=== PATIENT | male | born 1965 | race Caucasian/White ===

== ENCOUNTER 2017-10-31 10:50 | Inpatient (IN) | payer OTHER, MEDICARE ==
[2017-10-31] VITALS (9 sets, daily range): BP systolic 105–159; BP diastolic 61–89; PULSE 75–100; RESP 16–20; TEMP 96.4–98; O2SAT 93–100
[~2017-10-31] VITALS: Ht 177.8 cm; Wt 105.0 kg
[~2017-10-31 10:50] MED LIST: ALBU6.7H INH; AMIT10TA13 PO; ATOR80TA PO; DILT180C56 PO; FISH100020 PO; FLUO60TA PO; GABA800T PO; HYDR12.56 PO; OMEP20TA PO; OXYC15TA PO; OXYC40TA20 PO; TYLE500T PO
[2017-10-31] MEDS ORDERED: DILT120C50 PO (11:25)
[2017-10-31] MEDS ORDERED: ALBU6.7H INH (11:25)
[2017-10-31] MEDS ORDERED: ROXI30TA14 PO (11:25)
[2017-10-31] MEDS ORDERED: ONDANSETRON HCL 4 MG/2 ML VIAL IVP ONE (11:30)
[2017-10-31] MEDS ORDERED: SODIUM CHLOR 0.9% 1000 ML INJ 1,000 ML IV SCH (11:30)
[2017-10-31] MEDS ORDERED: SODIUM CHLORIDE 0.9% FLUSH 10 ML FLUSH IV FLUSH PRN ×2 (11:30→14:15)
[2017-10-31] MEDS ORDERED: MORPHINE SULFATE 4 MG/ML INJ IV PUSH ONE (11:30)
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
[2017-10-31 12:23] LABS: AUTOMATED NEUTROPHIL # 5.6 TH/MM3 (1.8-7.7); BASOPHIL # 0.1 TH/MM3 (0-0.2); BASOPHIL % 0.6 % (0.0-2.0); EOSINOPHIL # 0.2 TH/MM3 (0-0.4); EOSINOPHIL % 1.7 % (0.0-4.0); HEMATOCRIT 43.3 % (39.0-51.0); HEMOGLOBIN 15.2 GM/DL (13.0-17.0); LYMPH % 41.3 % (9.0-44.0); LYMPHOCYTE # 4.6 TH/MM3 (1.0-4.8); MEAN CELL VOLUME 95.9 FL (80.0-100.0); MEAN CORPUSCULAR HEMOGLOBIN 33.7 PG (27.0-34.0); MEAN CORPUSCULAR HGB CONC 35.1 % (32.0-36.0); MEAN PLATELET VOLUME 8.2 FL (7.0-11.0); MONO % 6.2 % (0.0-8.0); MONOCYTE # 0.7 TH/MM3 (0-0.9); NEUT % 50.2 % (16.0-70.0); PLATELET COUNT 288 TH/MM3 (150-450); RED BLOOD COUNT 4.51 MIL/MM3 (4.50-5.90); RED CELL DISTRIBUTION WIDTH 14.1 % (11.6-17.2); WHITE BLOOD COUNT 11.2 TH/MM3 (4.0-11.0)
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
[2017-10-31 12:42] LABS: ALKALINE PHOSPHATASE 82 U/L (45-117); TOTAL BILIRUBIN ADULT 0.3 MG/DL (0.2-1.0); TOTAL PROTEIN 7.9 GM/DL (6.4-8.2)
[2017-10-31 12:44] LABS: ALBUMIN 3.9 GM/DL (3.4-5.0); ALT (GPT) 24 U/L (12-78); AST (GOT) 26 U/L (15-37); BICARBONATE 24.5 MEQ/L (21.0-32.0); BLOOD UREA NITROGEN 10 MG/DL (7-18); CALCIUM 9.4 MG/DL (8.5-10.1); CHLORIDE 105 MEQ/L (98-107); CREATININE 0.88 MG/DL (0.60-1.30); GLOMERULAR FILTRATION RATE 91 ML/MIN (>89); GLUCOSE,RANDOM 114 MG/DL (74-106); SODIUM (NA) 138 MEQ/L (136-145)
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
[2017-10-31] MEDS ORDERED: HYDROmorphone HCL PF 2 MG/ML VIAL IVS ONE (13:15)
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
[2017-10-31] MEDS: SODIUM CHLOR 0.9% 1000 ML INJ 1,000 ML IV SCH ×2 (13:43→21:11)
[2017-10-31] MEDS ORDERED: HYDROmorphone HCL PF 1 MG/ML VIAL IV PUSH ONE (14:00)
[2017-10-31] MEDS ORDERED: ACETAMINOPHEN 325 MG TAB PO PRN (14:15)
[2017-10-31] MEDS ORDERED: ALBUTEROL SULFATE 90 MCG/ACT HFA 8 GM INHALER INH PRN (14:15)
[2017-10-31] MEDS ORDERED: SENNOSIDES 8.6 MG TAB PO PRN (14:15)
[2017-10-31] MEDS ORDERED: NALOXONE HCL 0.4 MG/ML AMP IV PUSH PRN (14:15)
[2017-10-31] MEDS ORDERED: ONDANSETRON HCL 4 MG/2 ML VIAL IVP PRN (14:15)
[2017-10-31] MEDS ORDERED: MAGNESIUM HYDROXIDE SUSP 30 ML CUP PO PRN (14:15)
[2017-10-31] MEDS ORDERED: RESP: ALBUTEROL 2.5 MG/3 ML NEB (PRN) NEB (14:15)
[2017-10-31] MEDS ORDERED: LACTULOSE SYRUP 20 GM/30 ML CUP PO PRN (14:15)
[2017-10-31] MEDS ORDERED: BISACODYL 10 MG SUPP RECTAL PRN (14:15)
[2017-10-31] MEDS ORDERED: HYDROmorphone HCL PF 2 MG/ML VIAL IV PUSH ONE (14:30)
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
[2017-10-31] MEDS ORDERED: OXYC30TA62 PO (16:25)
[2017-10-31] MEDS ORDERED: GABA800T PO (17:41)
[2017-10-31] MEDS ORDERED: FISHCAP4 PO (17:41)
[2017-10-31] MEDS ORDERED: FLUO60TA PO (17:41)
[2017-10-31] MEDS: HYDROmorphone HCL PF 2 MG/ML VIAL IV PUSH PRN ×2 (17:46→21:04)
[2017-10-31] MEDS ORDERED: OXYCODONE 15 MG PO PRN (18:00)
[2017-10-31] MEDS ORDERED: OXYCODONE 40 MG PO PRN (18:00)
[2017-10-31] MEDS: FLUoxetine HCL 20 MG CAP PO SCH (18:00)
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
[2017-10-31] MEDS: SODIUM CHLORIDE 0.9% FLUSH 10 ML FLUSH IV FLUSH SCH (21:00)
[2017-10-31] MEDS: DOCUSATE SODIUM 50 MG/SENNA 8.6 MG TAB PO SCH (21:01)
[2017-10-31] MEDS: GABAPENTIN 400 MG CAP PO SCH (21:01)
[2017-10-31] MEDS ORDERED: OXYCODONE 40 MG PO SCH ×2 (22:00)
[2017-10-31] MEDS ORDERED: oxyCODONE HCL 40 MG CONTROLLED RELEASE TAB PO SCH (22:00)
[2017-10-31] MEDS: ZOLPIDEM TARTRATE 5 MG TAB PO PRN (23:22)
[2017-10-31] MEDS: oxyCODONE HCL 40 MG CONTROLLED RELEASE TAB PO SCH (23:23)
[2017-11-01] MEDS ORDERED: SODIUM CHLORID 0.9% 500 ML IV PRN (00:45)
[2017-11-01] MEDS ORDERED: POVIDONE IODINE 5% (ANTISEPSIS KIT) 4 APPLICATIONS EACH NARE PRN (00:45)
[2017-11-01] MEDS ORDERED: CHLORHEXIDINE GLUCONATE 2 % 1 PACK (2 CLOTHS) TOPICAL PRN (00:45)
[2017-11-01] MEDS ORDERED: LACTATED RINGER'S 1000 ML IV PRN (00:45)
[2017-11-01] MEDS ORDERED: METOPROLOL TARTRATE 25 MG TAB PO PRN (00:45)
[2017-11-01] MEDS: HYDROmorphone HCL PF 2 MG/ML VIAL IV PUSH PRN ×2 (00:51→05:25)
[2017-11-01 03:49] VITALS: BP 116/61; PULSE 80; RESP 18; TEMP 96.6; O2SAT 97
[2017-11-01 04:12] LABS: AUTOMATED NEUTROPHIL # 4.2 TH/MM3 (1.8-7.7); BASOPHIL % 0.4 % (0.0-2.0); EOSINOPHIL # 0.2 TH/MM3 (0-0.4); EOSINOPHIL % 2.3 % (0.0-4.0); HEMATOCRIT 38.1 % (39.0-51.0); HEMOGLOBIN 13.2 GM/DL (13.0-17.0); LYMPH % 38.2 % (9.0-44.0); LYMPHOCYTE # 3.1 TH/MM3 (1.0-4.8); MEAN CELL VOLUME 97.2 FL (80.0-100.0); MEAN CORPUSCULAR HEMOGLOBIN 33.8 PG (27.0-34.0); MEAN CORPUSCULAR HGB CONC 34.7 % (32.0-36.0); MEAN PLATELET VOLUME 7.6 FL (7.0-11.0); MONO % 8.2 % (0.0-8.0); MONOCYTE # 0.7 TH/MM3 (0-0.9); NEUT % 50.9 % (16.0-70.0); PLATELET COUNT 232 TH/MM3 (150-450); RED BLOOD COUNT 3.92 MIL/MM3 (4.50-5.90); WHITE BLOOD COUNT 8.2 TH/MM3 (4.0-11.0)
[2017-11-01 04:48] LABS: BICARBONATE 30.7 MEQ/L (21.0-32.0); CALCIUM 8.1 MG/DL (8.5-10.1); CREATININE 0.71 MG/DL (0.60-1.30)
[2017-11-01 05:35] LABS: BILIRUBIN, URINE NEG (NEG); BLOOD, URINE NEG (NEG); GLUCOSE,URINE NEG (NEG); KETONE, URINE NEG (NEG); MUCUS URINE FEW /lpf (OCC); NITRITE,URINE NEG (NEG); SQUAMOUS EPITHELIAL CELL URINE <1 /hpf (0-5); URINE COLOR YELLOW (YELLW/STRAW); URINE LEUKOCYTE ESTERASE NEG (NEG)
[2017-11-01] MEDS: oxyCODONE HCL 40 MG CONTROLLED RELEASE TAB PO SCH ×3 (06:00→20:42)
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
[2017-11-01] MEDS ORDERED: WHEEMIS3 (06:37)
[2017-11-01] MEDS ORDERED: XARE10TA PO (06:37)
[2017-11-01] MEDS ORDERED: WALKER/ADULT/FO1 MIS (06:37)
[2017-11-01] MEDS ORDERED: ENDO10TA8 PO (06:37)
[2017-11-01 08:00] VITALS: BP 121/76; PULSE 77; RESP 18; TEMP 96.5; O2SAT 93
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
[2017-11-01] MEDS ORDERED: GENTAMICIN SULFATE 80 MG/2 ML VIAL ONE (08:50)
[2017-11-01] MEDS ORDERED: BUPIVACAINE/EPINEPHRINE 0.25% 50 ML VIAL ONE (08:50)
[2017-11-01] MEDS: DOCUSATE SODIUM 50 MG/SENNA 8.6 MG TAB PO SCH ×2 (09:00→20:44)
[2017-11-01] MEDS ORDERED: CHOLECALCIFEROL PO SCH (09:00)
[2017-11-01] MEDS ORDERED: NICOTINE 21 MG/24 HR PATCH T-DERMAL SCH (09:00)
[2017-11-01] MEDS: DILTIAZEM-CD 180 MG CAP ER PO SCH (09:00)
[2017-11-01] MEDS ORDERED: REMOVE OLD PATCH T-DERMAL SCH (09:00)
[2017-11-01] MEDS ORDERED: NON-FORMULARY DRUG (Fish Oil-Cholecalciferol (Fish Oil + D3) 1 CAP) PO SCH (09:00)
[2017-11-01] MEDS: GABAPENTIN 400 MG CAP PO SCH ×2 (09:00→20:41)
[2017-11-01] MEDS ORDERED: FISH OIL PO SCH (09:00)
[2017-11-01] MEDS: FLUoxetine HCL 20 MG CAP PO SCH ×2 (09:00→15:56)
[2017-11-01] MEDS: SODIUM CHLORIDE 0.9% FLUSH 10 ML FLUSH IV FLUSH SCH ×2 (09:00→20:43)
[2017-11-01] MEDS ORDERED: HYDROmorphone HCL PF 2 MG/ML VIAL ONE (09:15)
[2017-11-01] MEDS ORDERED: VANCOMYCIN HCL 1000 MG VIAL ONE (10:28)
[2017-11-01] MEDS ORDERED: ceFAZolin INJ 1,000 MG VIAL IV ONE ×2 (10:43→12:00)
[2017-11-01] MEDS ORDERED: ceFAZolin 2 GM PREMIX 50 ML IV ONE (11:00)
[2017-11-01] MEDS: LACTATED RINGER'S 1000 ML INJ 1,000 ML IV SCH (11:25)
[2017-11-01] MEDS ORDERED: ACETAMINOPHEN/HYDROcodone 325 MG/7.5 MG TAB PO PRN (11:30)
[2017-11-01] MEDS ORDERED: MORPHINE SULFATE 2 MG/ML INJ IV PUSH PRN (11:30)
[2017-11-01] MEDS ORDERED: diphenhydrAMINE HCL 25 MG CAP PO PRN (11:30)
--- NOTE | 2017-11-01 11:35 | PD.OP ---
cc: Edwin Dias MD Operative Report Date of Surgery: Nov 01, 2017 Preoperative Diagnosis: displaced right distal tibia shaft fracture Postoperative Diagnosis: Procedure: Open reduction internal fixation right distal tibia Anesthesia: Gen. Surgeon: Edwin Dias Fish Roe Technician(s): LALITA Woo PA-C The surgical procedure was assisted by my physician administrative assistant data entry. My P.A. presence was necessary throughout this case for the manipulation and positioning of the surgical extremity. My P.A. was assisting me throughout the duration of this procedure. The skill set of a physician administrative assistant data entry was medically necessary to complete this procedure. During the surgical case the surgical scrub tech was working at the back table and the physician administrative assistant data entry was directly assisting me. Operation and Findings: Plan of activity: Nonweightbearing Implants used: ITS Informed consent was obtained for open reduction and internal fixation of distal tibia fracture. Soft tissue was evaluated preoperatively and found to be suitable for surgery. Patient was brought to the operating placed on operating room table. Patient was given IV sedation and general anesthesia. Timeout procedure was performed, and IV antibiotics were given prior to procedure. The operative leg was now prepped with alcohol followed by Hibiclens and draped usual sterile fashion. A 3 inch incision was now made over the medial aspect of the ankle. Saphenous vein was protected. A full thickness flap was now elevated. The distal medial tibia was now exposed. Attention was now turned towards reduction. The metaphyseal fragments were reduced first. Traction was applied and fracture fragments were manipulated. Fracture was manipulated manipulated until excellent reduction was achieved. Fracture tenaculums were used to reduce fractures. Multiple K wires were used to hold provisional fixation. 3.5 cortical lag screws were used to compress fracture. Fluoroscopy confirmed excellent alignment of fractures. A ITS plate was selected and contoured to fit the distal tibia. Plate was placed percutaneously along the medial aspect of the distal tibia. Plate was provisionally held to bone with K wires. 4.5 cortical screws were used to compress plate to bone. Multiple screws were placed into the shaft. Additional screws were placed into the distal segment. All screws were predrilled and premeasured for appropriate lengths. Final fluoroscopy revealed well aligned fracture with well-placed hardware. The wound was now thoroughly irrigated. Subcutaneous tissues closed with 3-0 Vicryl and skin was closed with 3-0 nylon. Sterile dressings were applied with Xeroform 4 x 4's soft roll and a well-padded splint.. Needle and sponge counts were correct. Patient was transferred to recovery room in stable condition. Edwin Dias MD Nov 01, 2017 11:35
[2017-11-01] MEDS ORDERED: DO NOT ADM ANY ANTICOAGULANT DRUGS PRN (11:49)
[2017-11-01] MEDS ORDERED: *MEPERIDINE 25 MG INJ VIAL PERIprocedural Use ONLY ONE (11:59)
[2017-11-01] MEDS ORDERED: DEXAMETHASONE SOD PHOS 4 MG/ML VIAL IV ONE (12:00)
[2017-11-01] MEDS ORDERED: Post-op Orders (for Pharmacy) XX ONE (12:00)
[2017-11-01] MEDS ORDERED: LIDOCAINE HCL 1% PF 5 ML SYRINGE OTHER ONE (12:00)
[2017-11-01] MEDS ORDERED: ePHEDrine/NS 25 MG/5 ML SYRINGE IV ONE (12:00)
[2017-11-01] MEDS ORDERED: LACTATED RINGER'S 1000 ML INJ 1,000 ML IV ONE (12:00)
[2017-11-01] MEDS ORDERED: PROPOFOL 200 MG/20 ML AMP IV ONE (12:00)
[2017-11-01] MEDS ORDERED: PHENYLEPH/NS 1000 MCG/10 ML SYR IV ONE (12:00)
[2017-11-01] MEDS ORDERED: MIDAZOLAM HCL 2 MG/2 ML VIAL ONE (12:03)
[2017-11-01] MEDS ORDERED: MORPHINE SULFATE 4 MG/ML INJ ONE (12:04)
[2017-11-01] MEDS ORDERED: ACETAMINOPHEN 1000 MG/100 ML 100 ML IV ONE (12:04)
[2017-11-01] MEDS ORDERED: *morphine SULFATE 4 MG/ML PERIprocedure ONLY ONE ×3 (12:06→12:27)
--- NOTE | 2017-11-01 12:55 | EKG ---
Date Performed: 10/31/2017 Time Performed: 17:50:15 PTAGE: 52 years EKG: Sinus rhythm NORMAL ECG NO PREVIOUS TRACING DOCTOR: Freddie Fischer Interpretating Date/Time 11/01/2017 12:49:19
[2017-11-01] MEDS: CALCIUM/VITAMIN D 250 MG/125 U TAB PO SCH ×2 (13:00→17:38)
--- NOTE | 2017-11-01 13:40 | RADRPT ---
EXAM DATE/TIME: 11/01/2017 11:17 [facility] COMPARISON: TIBIA/FIBULA RIGHT (AP/LAT), October 31, 2017, 11:51. INDICATIONS : Open reduction internal fixation right tibia. MEDICAL HISTORY : None. SURGICAL HISTORY : Left total knee replacment. ENCOUNTER: Initial ACUITY: 1 day PAIN SCORE: Non-responsive. LOCATION: Right Tibia FINDINGS: Plate is seen bridging the tibial fracture. Alignment is anatomic. CONCLUSION: Anatomic alignment. Tyler Green MD FACR on November 01, 2017 at 13:37 Board Certified Radiologist. This report was verified electronically.
[2017-11-01 13:55] VITALS: BP 140/74; PULSE 76; RESP 18; TEMP 98.5; O2SAT 93
[2017-11-01] MEDS: KETOROLAC TROMETHAMINE 30 MG/ML (IVP) VIAL IVP SCH ×2 (14:09→20:42)
[2017-11-01] MEDS ORDERED: ALBUTEROL SULFATE 90 MCG/ACT HFA 8 GM INHALER INH PRN (14:45)
[2017-11-01] MEDS: ACETAMINOPHEN/HYDROcodone 325 MG/10 MG TAB PO PRN ×2 (15:55→22:19)
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
[2017-11-01] MEDS: ceFAZolin 2 GM PREMIX 50 ML IV SCH (17:38)
[2017-11-01 17:54] VITALS: O2SAT 93
[2017-11-01] MEDS ORDERED: RESP: ALBUTEROL 2.5 MG/IPRATROPIUM 0.5 MG NEB (PRN) NEB (19:00)
[2017-11-01 20:00] VITALS: BP 113/72; PULSE 79; RESP 18; TEMP 96.7; O2SAT 96
[2017-11-01] MEDS: RESP: ALBUTEROL 2.5 MG/IPRATROPIUM 0.5 MG NEB (SCH) NEB (20:13)
[2017-11-01] MEDS: ZOLPIDEM TARTRATE 5 MG TAB PO PRN (20:41)
[2017-11-01] MEDS: VANCOMYCIN INJ 1,000 MG in SODIUM CHLOR 0.9% 250 ML INJ 250 ML IV SCH (20:41)
[2017-11-01] MEDS: BUDESONIDE-FORMOTEROL 160/4.5 MCG INHALER INH SCH (22:19)
[2017-11-01] MEDS: ENOXAPARIN SODIUM 40 MG/0.4 ML SYRINGE SQ SCH (23:31)
[2017-11-02] VITALS (7 sets, daily range): BP systolic 112–153; BP diastolic 60–80; PULSE 68–84; RESP 17–18; TEMP 95.2–97.7; O2SAT 94–98
[2017-11-02] MEDS: ceFAZolin 2 GM PREMIX 50 ML IV SCH ×3 (02:00→18:28)
[2017-11-02] MEDS: LACTATED RINGER'S 1000 ML INJ 1,000 ML IV SCH ×2 (02:04→07:25)
[2017-11-02] MEDS: oxyCODONE HCL 40 MG CONTROLLED RELEASE TAB PO SCH ×3 (06:11→21:58)
[2017-11-02] MEDS: KETOROLAC TROMETHAMINE 30 MG/ML (IVP) VIAL IVP SCH ×2 (06:12→14:37)
--- NOTE | 2017-11-02 06:23 | PD.ORT.PN ---
Subjective Subjective Remarks POD 1 s/p ORIF right distal tibia doing well. reports significant pain yesterday but has improved significantly since then Objective Vitals Vital Signs Date Time Temp Pulse Resp B/P (MAP) Pulse Ox O2 Delivery O2 Flow Rate FiO2 11/02/17 04:40 97.2 72 18 145/67 (93) 98 11/02/17 00:32 Nasal Cannula 3.00 11/02/17 00:07 97.4 72 18 142/67 (92) 94 11/01/17 23:22 18 11/01/17 21:56 18 11/01/17 21:56 18 11/01/17 20:00 96.7 79 18 113/72 (86) 96 11/01/17 17:54 93 21 11/01/17 13:55 98.5 76 18 140/74 (96) 93 11/01/17 13:25 97.8 83 16 137/67 (90) 96 Nasal Cannula 3 11/01/17 13:00 85 16 130/62 (84) 96 Nasal Cannula 3 11/01/17 12:45 88 16 141/72 (95) 96 Nasal Cannula 3 11/01/17 12:30 92 17 144/76 (98) 96 Nasal Cannula 3 11/01/17 12:15 100 20 146/77 (100) 94 Nasal Cannula 3 11/01/17 11:56 97.4 100 20 157/90 (112) 96 Nasal Cannula 3 11/01/17 08:00 96.5 77 18 121/76 (91) 93 I/O 11/01/17 11/01/17 11/01/17 11/02/17 11/02/17 11/02/17 07:00 15:00 23:00 07:00 15:00 23:00 Intake Total 0 ml 1950 ml 730 ml 1410 ml Output Total 875 ml 50 ml 300 ml 600 ml Balance -875 ml 1900 ml 430 ml 810 ml Intake Oral 0 ml 480 ml 360 ml IV Total 150 ml 250 ml 1050 ml Other 1800 ml Output Urine Total 875 ml 0 ml 300 ml 600 ml Estimated Blood Loss 50 ml # Voids 1 # Bowel Movements 0 0 0 Result Diagram: 11/01/17 0358 11/01/17 0358 Imaging Last 24 hours Impressions Tibia/Fibula X-Ray 10/31/17 1130 Signed Impressions: Service Date/Time: Tuesday, October 31, 2017 11:51 - CONCLUSION: Fractures of the proximal fibula and distal tibia with greater than one shaft width displacement of the distal tibial fragment. Ariel Cam MD Maxillofacial CT 10/31/17 1130 Signed Impressions: Service Date/Time: Tuesday, October 31, 2017 12:43 - CONCLUSION: 1. No acute facial bone fracture. Soft tissue swelling involving the left cheek. 2. 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 3. Obstruction of the ostiomeatal complexes bilaterally. 4. Bilateral prashant bullosa. Casey Huitron MD Head CT 10/31/170 Signed Impressions: Service Date/Time: Tuesday, October 31, 2017 12:43 - CONCLUSION: No acute findings in the brain. Ariel Cam MD Chest X-Ray 10/31/171129 Signed Impressions: Service Date/Time: Tuesday, October 31, 2017 11:59 - CONCLUSION: The lungs are clear. Ariel Cam MD Cervical Spine CT 10/31/170 Signed Impressions: Service Date/Time: Tuesday, October 31, 2017 12:43 - CONCLUSION: 1. Subtle, less than 2 mm, anterolisthesis of C4 on C5. This is likely degenerative with degenerative spondylosis noted at C3-5 including bilateral facet arthropathy. Flexion and extension views may be obtained if there is clinical concern regarding ligamentous instability. 2. No acute fracture. Richard Stroud MD Objective Remarks RLE: +short leg splint. good motion of toes with no pain. nvi Assessment & Plan Assessment and Plan 1) Right Distal Tibia Fx s/p ORIF - POD 1 -NWB -elevate -maintain splint at all time -keep clean and dry -work withPT on walker training -if doing well, potentially home tomorrow with [facility] -f/u with Herb or PA in 2 weeks Nicholas Mckeon PA/Hose Tester PA Nov 02, 2017 06:23
--- NOTE | 2017-11-02 06:24 | HHI.FF ---
Face to Face Verification Diagnosis: (1) Tibia/fibula fracture Physical Therapy Gait training Right LE Weight Bearing: Non WB Nursing Dressing Changes: Do not change dressing (maintain splint at all times) I have seen patient Tigre Laureano on 11/02/17. My clinical findings support the need for the requested home health care services because: Ltd mobility - disease progression I certify that my clinical findings support that this patient is homebound because: Post-op weakness Nicholas Mckeon/Adjunct Professor Of Voice PA Nov 02, 2017 06:24
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
[2017-11-02] MEDS: RESP: ALBUTEROL 2.5 MG/IPRATROPIUM 0.5 MG NEB (SCH) NEB ×4 (08:54→19:43)
[2017-11-02] MEDS: SODIUM CHLORIDE 0.9% FLUSH 10 ML FLUSH IV FLUSH SCH ×2 (09:00→21:57)
[2017-11-02] MEDS: DILTIAZEM-CD 180 MG CAP ER PO SCH (09:00)
[2017-11-02] MEDS: GABAPENTIN 400 MG CAP PO SCH ×2 (09:22→18:28)
[2017-11-02] MEDS: PANTOPRAZOLE SOD 40 MG DELAYED RELEASE TAB PO SCH (09:22)
[2017-11-02] MEDS: DOCUSATE SODIUM 50 MG/SENNA 8.6 MG TAB PO SCH ×2 (09:23→21:57)
[2017-11-02] MEDS: ACETAMINOPHEN/HYDROcodone 325 MG/10 MG TAB PO PRN (09:23)
[2017-11-02] MEDS: CALCIUM/VITAMIN D 250 MG/125 U TAB PO SCH ×3 (09:24→18:28)
[2017-11-02] MEDS: FLUoxetine HCL 20 MG CAP PO SCH (09:24)
[2017-11-02] MEDS: BUDESONIDE-FORMOTEROL 160/4.5 MCG INHALER INH SCH ×2 (09:24→21:57)
[2017-11-02] MEDS: VANCOMYCIN INJ 1,000 MG in SODIUM CHLOR 0.9% 250 ML INJ 250 ML IV SCH ×2 (09:28→21:58)
--- NOTE | 2017-11-02 16:55 | HHI.PR ---
Subjective Remarks ALERT NO SOB C/O LE PAIN POST OP Objective Vital Signs Date Time Temp Pulse Resp B/P (MAP) Pulse Ox O2 Delivery O2 Flow Rate FiO2 11/02/17 16:00 95.4 71 18 121/69 (86) 94 11/02/17 12:00 95.2 84 18 153/80 (104) 97 11/02/17 08:56 21 11/02/17 08:00 97.7 75 18 142/65 (90) 97 11/02/17 04:40 97.2 72 18 145/67 (93) 98 11/02/17 00:32 Nasal Cannula 3.00 11/02/17 00:07 97.4 72 18 142/67 (92) 94 11/01/17 23:22 18 11/01/17 21:56 18 11/01/17 21:56 18 11/01/17 20:00 96.7 79 18 113/72 (86) 96 11/01/17 17:54 93 21 I/O 11/01/17 11/01/17 11/01/17 11/02/17 11/02/17 11/02/17 07:00 15:00 23:00 07:00 15:00 23:00 Intake Total 0 ml 1950 ml 730 ml 1410 ml 600 ml Output Total 875 ml 50 ml 300 ml 600 ml Balance -875 ml 1900 ml 430 ml 810 ml 600 ml Intake Oral 0 ml 480 ml 360 ml 600 ml IV Total 150 ml 250 ml 1050 ml Other 1800 ml Output Urine Total 875 ml 0 ml 300 ml 600 ml Estimated Blood Loss 50 ml # Voids 1 2 # Bowel Movements 0 0 0 1 Result Diagram: 11/01/17 0358 11/01/17 0358 Objective Remarks GENERAL: SKIN: Warm and dry. HEAD: Atraumatic. Normocephalic. EYES: Pupils equal and round. No scleral icterus. No injection or drainage. ENT: No nasal bleeding or discharge. Mucous membranes pink and moist. NECK: Trachea midline. No JVD. CARDIOVASCULAR: Regular rate and rhythm. RESPIRATORY: No accessory muscle use. Clear to auscultation. Breath sounds equal bilaterally. GASTROINTESTINAL: Abdomen soft, non-tender, nondistended. Hepatic and splenic margins not palpable. MUSCULOSKELETAL: Extremities without clubbing, cyanosis, or edema. No obvious deformities. NEUROLOGICAL: Awake and alert. No obvious cranial nerve deficits. Motor grossly within normal limits. Five out of 5 muscle strength in the arms and legs. Normal speech. PSYCHIATRIC: Appropriate mood and affect; insight and judgment normal. Assessment and Plan Assessment and Plan TIB/FIB FX COPD MARY ON O2 NC PLAN O2 NEEDED BRONCHODILATORS NEEDED CPAP WHEN SLEEPING MAY USE HIS OWN Catrina Fritz MD Nov 02, 2017 16:55
[2017-11-02] MEDS ORDERED: GABAPENTIN 400 MG CAP PO ONE (17:00)
[2017-11-02] MEDS ORDERED: THIAMINE HCL 100 MG TAB PO ONE (17:00)
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
--- NOTE | 2017-11-02 17:54 | PD.ORT.PN ---
Subjective Subjective Remarks POD 1 s/p ORIF right distal tibia patient states that mid day today that he started having severe increase in pain to the ankle. states it feels like pins and pokers in his ankle. reports that he has hx of neuropathy and sensitivity to things touching his feet. reports that takes gabapentin 800mg TID at home but has only been given it BID here in hospital. Objective Vitals Vital Signs Date Time Temp Pulse Resp B/P (MAP) Pulse Ox O2 Delivery O2 Flow Rate FiO2 11/02/17 16:00 95.4 71 18 121/69 (86) 94 11/02/17 12:00 95.2 84 18 153/80 (104) 97 11/02/17 08:56 21 11/02/17 08:00 97.7 75 18 142/65 (90) 97 11/02/17 04:40 97.2 72 18 145/67 (93) 98 11/02/17 00:32 Nasal Cannula 3.00 11/02/17 00:07 97.4 72 18 142/67 (92) 94 11/01/17 23:22 18 11/01/17 21:56 18 11/01/17 21:56 18 11/01/17 20:00 96.7 79 18 113/72 (86) 96 11/01/17 17:54 93 21 I/O 11/01/17 11/01/17 11/01/17 11/02/17 11/02/17 11/02/17 07:00 15:00 23:00 07:00 15:00 23:00 Intake Total 0 ml 1950 ml 730 ml 1410 ml 600 ml Output Total 875 ml 50 ml 300 ml 600 ml Balance -875 ml 1900 ml 430 ml 810 ml 600 ml Intake Oral 0 ml 480 ml 360 ml 600 ml IV Total 150 ml 250 ml 1050 ml Other 1800 ml Output Urine Total 875 ml 0 ml 300 ml 600 ml Estimated Blood Loss 50 ml # Voids 1 2 # Bowel Movements 0 0 0 1 Result Diagram: 11/01/17 0358 11/01/17 0358 Imaging Last 24 hours Impressions Tibia/Fibula X-Ray 10/31/17 1130 Signed Impressions: Service Date/Time: Tuesday, October 31, 2017 11:51 - CONCLUSION: Fractures of the proximal fibula and distal tibia with greater than one shaft width displacement of the distal tibial fragment. Ariel Cam MD Maxillofacial CT 10/31/171129 Signed Impressions: Service Date/Time: Tuesday, October 31, 2017 12:43 - CONCLUSION: 1. No acute facial bone fracture. Soft tissue swelling involving the left cheek. 2. 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 3. Obstruction of the ostiomeatal complexes bilaterally. 4. Bilateral prashant bullosa. Casey Huitron MD Head CT 10/31/171129 Signed Impressions: Service Date/Time: Tuesday, October 31, 2017 12:43 - CONCLUSION: No acute findings in the brain. Ariel Cam MD Chest X-Ray 10/31/171129 Signed Impressions: Service Date/Time: Tuesday, October 31, 2017 11:59 - CONCLUSION: The lungs are clear. Ariel Cam MD Cervical Spine CT 10/31/171129 Signed Impressions: Service Date/Time: Tuesday, October 31, 2017 12:43 - CONCLUSION: 1. Subtle, less than 2 mm, anterolisthesis of C4 on C5. This is likely degenerative with degenerative spondylosis noted at C3-5 including bilateral facet arthropathy. Flexion and extension views may be obtained if there is clinical concern regarding ligamentous instability. 2. No acute fracture. Richard Stroud MD Objective Remarks RLE: +short leg splint. splint removed and ankle visualized. incisions clean and dry. minimal swelling. +cap refill. Assessment & Plan Assessment and Plan 1) Right Distal Tibia Fx s/p ORIF - POD 1 -NWB -elevate -splint removed to check swelling at bedside. patient with significant relief after that done -will resplint -Dr Morales increased Gabapentin to TID. suspect that increase in pain related to neuropathy. -will recheck tomorrow -if have good night and feeling good in AM, can consider home with [facility] -advised pt that due to amount of pain meds that he takes at home, that controlling his pain post operatively may prove to be difficulty -also counseled patient in regards to smoking cessation -f/u with Dr Dias or PA in 2 weeks Nicholas Mckeon/Rn Home [facility] VAR[facility]ESE Nov 02, 2017 17:54
[2017-11-02] MEDS: ENOXAPARIN SODIUM 40 MG/0.4 ML SYRINGE SQ SCH (23:45)
[2017-11-03 00:45] VITALS: BP 121/66; PULSE 67; RESP 18; TEMP 96.9; O2SAT 94
[2017-11-03] MEDS: ceFAZolin 2 GM PREMIX 50 ML IV SCH ×2 (02:07→10:07)
[2017-11-03] MEDS: ACETAMINOPHEN/HYDROcodone 325 MG/10 MG TAB PO PRN ×2 (04:41→10:04)
[2017-11-03] MEDS: oxyCODONE HCL 40 MG CONTROLLED RELEASE TAB PO SCH (06:09)
--- NOTE | 2017-11-03 07:00 | PD.ORT.PN ---
Subjective Subjective Remarks POD 2 s/p ORIF right distal tibia patient that reports his pain has improved significantly since last night and that he feels great. Objective Vitals Vital Signs Date Time Temp Pulse Resp B/P (MAP) Pulse Ox O2 Delivery O2 Flow Rate FiO2 11/03/17 00:45 96.9 67 18 121/66 (84) 94 11/02/17 21:58 Room Air 11/02/17 20:30 97.0 68 17 112/60 (77) 97 11/02/17 19:47 95 11/02/17 16:00 95.4 71 18 121/69 (86) 94 11/02/17 12:00 95.2 84 18 153/80 (104) 97 11/02/17 08:56 21 11/02/17 08:00 97.7 75 18 142/65 (90) 97 I/O 11/02/17 11/02/17 11/02/17 11/03/17 11/03/17 11/03/17 07:00 15:00 23:00 07:00 15:00 23:00 Intake Total 1410 ml 600 ml 2388 ml 250 ml Output Total 600 ml 200 ml Balance 810 ml 600 ml 2188 ml 250 ml Intake Oral 360 ml 600 ml 360 ml IV Total 1050 ml 2028 ml 250 ml Output Urine Total 600 ml 200 ml # Voids 2 # Bowel Movements 0 1 0 Result Diagram: 11/01/17 0358 11/01/17 0358 Imaging Last 24 hours Impressions Tibia/Fibula X-Ray 10/31/171129 Signed Impressions: Service Date/Time: Tuesday, October 31, 2017 11:51 - CONCLUSION: Fractures of the proximal fibula and distal tibia with greater than one shaft width displacement of the distal tibial fragment. Ariel Cam MD Maxillofacial CT 10/31/17 113 Signed Impressions: Service Date/Time: Tuesday, October 31, 2017 12:43 - CONCLUSION: 1. No acute facial bone fracture. Soft tissue swelling involving the left cheek. 2. 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 3. Obstruction of the ostiomeatal complexes bilaterally. 4. Bilateral prashant bullosa. Casey Huitron MD Head CT 2/6/1129 Signed Impressions: Service Date/Time: Tuesday, October 31, 2017 12:43 - CONCLUSION: No acute findings in the brain. Ariel Cam MD Chest X-Ray 10/31/171129 Signed Impressions: Service Date/Time: Tuesday, October 31, 2017 11:59 - CONCLUSION: The lungs are clear. Ariel Cam MD Cervical Spine CT 10/31/171129 Signed Impressions: Service Date/Time: Tuesday, October 31, 2017 12:43 - CONCLUSION: 1. Subtle, less than 2 mm, anterolisthesis of C4 on C5. This is likely degenerative with degenerative spondylosis noted at C3-5 including bilateral facet arthropathy. Flexion and extension views may be obtained if there is clinical concern regarding ligamentous instability. 2. No acute fracture. Richard Stroud MD Objective Remarks RLE: +short leg splint.intact. good cap refill. NVI Assessment & Plan Assessment and Plan 1) Right Distal Tibia Fx s/p ORIF - POD 2 -NWB -elevate -maintain splint at all times -if have good night and feeling good in AM, can consider home with [facility] -advised pt that due to amount of pain meds that he takes at home, that controlling his pain post operatively may prove to be difficulty -also counseled patient in regards to smoking cessation -ortho cleared for DC home with [facility] -f/u with Dr Dias or PA in 2 weeks Nicholas Mckeon/Draw Operator VARGHESE Nov 03, 2017 07:00
[2017-11-03 08:00] VITALS: BP 132/81; PULSE 82; RESP 18; TEMP 95.4; O2SAT 96
[2017-11-03] MEDS: RESP: ALBUTEROL 2.5 MG/IPRATROPIUM 0.5 MG NEB (SCH) NEB (08:00)
[2017-11-03] MEDS ORDERED: CRUTMIS25 (09:31)
[2017-11-03] MEDS: PANTOPRAZOLE SOD 40 MG DELAYED RELEASE TAB PO SCH (10:02)
[2017-11-03] MEDS: GABAPENTIN 400 MG CAP PO SCH (10:02)
[2017-11-03] MEDS: FLUoxetine HCL 20 MG CAP PO SCH (10:02)
[2017-11-03] MEDS: DOCUSATE SODIUM 50 MG/SENNA 8.6 MG TAB PO SCH (10:03)
[2017-11-03] MEDS: DILTIAZEM-CD 180 MG CAP ER PO SCH (10:03)
[2017-11-03] MEDS: CALCIUM/VITAMIN D 250 MG/125 U TAB PO SCH (10:03)
[2017-11-03] MEDS: BUDESONIDE-FORMOTEROL 160/4.5 MCG INHALER INH SCH (10:05)
[2017-11-03] MEDS: SODIUM CHLORIDE 0.9% FLUSH 10 ML FLUSH IV FLUSH SCH (10:07)
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
[2017-11-03 12:00] VITALS: BP 134/68; PULSE 68; RESP 18; TEMP 95.8; O2SAT 95
== END 2017-11-03 12:56 | disposition home health service (06) | DRG 494 ==
LOC: NEPC 10:50 → NEDA 14:24 → N06A 18:12
PROVIDERS: ADMIT Internal Medicine; ATTEND Internal Medicine
PROC: 0QSG04Z Reposition Right Tibia with Internal Fixation Device, Open Approach (ICD-10-PCS; principal; 2017-11-01 09:56)
DX: S82.201A Unspecified fracture of shaft of right tibia, initial encounter for closed fracture (principal); I10 Essential (primary) hypertension; G62.9 Polyneuropathy, unspecified; S00.83XA Contusion of other part of head, initial encounter; D72.829 Elevated white blood cell count, unspecified; J44.9 Chronic obstructive pulmonary disease, unspecified; S20.212A Contusion of left front wall of thorax, initial encounter; S82.401A Unspecified fracture of shaft of right fibula, initial encounter for closed fracture; S40.011A Contusion of right shoulder, initial encounter; E78.5 Hyperlipidemia, unspecified; J45.909 Unspecified asthma, uncomplicated; K21.9 Gastro-esophageal reflux disease without esophagitis; M54.5 Low back pain; F17.210 Nicotine dependence, cigarettes, uncomplicated; G89.29 Other chronic pain; G47.33 Obstructive sleep apnea (adult) (pediatric); E78.00 Pure hypercholesterolemia, unspecified; Y92.007 Garden or yard of unspecified non-institutional (private) residence as the place of occurrence of the external cause; Y04.0XXA Assault by unarmed brawl or fight, initial encounter; Z79.891 Long term (current) use of opiate analgesic; Z86.14 Personal history of Methicillin resistant Staphylococcus aureus infection; Z91.19 Patient's noncompliance with other medical treatment and regimen; Z96.651 Presence of right artificial knee joint
CPT/HCPCS: 70450; 70486; 71046; 72125; 73030; 73590; 76000; 80048; 80053; 81001; 82550; 83605; 85025; 87640; 87641; 93005; 94150; 94640; 94664; 96361; 96374; 96375; C1713; E0113; J0131; J0690; J1100; J1170; J1580; J1650; J1885; J2175; J2250; J2270; J2370; J2405; J3010; J3370; J7030; J7050; J7120; J7613; L0150; L1830

== ENCOUNTER 2018-08-30 11:48 | Inpatient (IN) ==
[2018-08-30] MEDS ORDERED: Vancomycin Inj 1,000 MG in Sodium Chlor 0.9% Inj 250 ML IV.SIG ONE (14:40)
--- NOTE | 2018-08-30 14:54 | ED ---
HPI General Chief Complaint: Respiratory Symptoms Stated Complaint: Dr Seaman/Medical Time Seen by Provider: 08/30/18 14:21 History of Present Illness HPI Narrative: This patient was sent here for admission by his traffic control specialist Dr. Freddie Collins. This patient's been coughing up whitish sputum for full 1-2 months. He has COPD and is chronically short of breath. He continues to smoke. He denies fever. He is not having chest pain. He recently had an outpatient CT of the chest through the OR system and Dr. Collins noted that he has bilateral pneumonia. Sputum culture has just revealed MRSA and E. coli. Symptom severity is moderate. No alleviating factors. No exacerbating factors. Related Data Home Medications Medication Instructions Recorded Confirmed albuterol sulfate 0.63 mg INHALATION Q4H PRN 07/16/18 08/30/18 oxycodone 15 mg PO Q4-6H PRN 07/16/18 08/30/18 oxycodone [OxyContin] 40 mg PO TID 07/16/18 08/30/18 ProAir HFA 08/30/18 amitriptyline 50 mg PO DAILY NEB 08/30/18 08/30/18 atorvastatin 40 mg PO DAILY NEB 08/30/18 08/30/18 budesonide-formoterol [Symbicort] 2 puff INHALATION BID 08/30/18 08/30/18 hydrochlorothiazide 12.5 mg PO DAILY 08/30/18 08/30/18 omeprazole 20 mg PO DAILY 08/30/18 08/30/18 oxycodone [OxyContin] 40 mg PO Q12H 08/30/18 08/30/18 Allergies Allergy/AdvReac Type Severity Reaction Status Date / Time No Known Allergies Allergy Verified 08/30/18 12:08 Review of Systems ROS: all other systems reviewed are negative PMFSH Social History Social History Substance History: No History of Abuse Second Hand Smoke Exposure: No Smoking Status: Current every day smoker Tobacco Type: Cigarettes How Often Do You Have a Drink Containing Alcohol: Monthly or less Recent Travel in [facility] within the Last 8 Weeks: No Recent Out of Country Travel within the Last 8 Weeks: No Immunization History Tetanus Immunization: <5 Years Exam Narrative Exam Narrative: GENERAL: Well-nourished, well-developed patient in no apparent distress. SKIN: Focused skin assessment reveals no rash and nodules. Skin is Warm and dry. HEAD: Atraumatic. Normocephalic. EYES: Pupils equal and round. No scleral icterus. No injection or drainage. ENT: No nasal bleeding or discharge. Mucous membranes pink and moist. NECK: Trachea midline. No JVD. CARDIOVASCULAR: Regular rate and rhythm. No murmur appreciated. RESPIRATORY: No accessory muscle use. Diffuse expiratory wheeze with some rhonchi. Breath sounds equal bilaterally. GASTROINTESTINAL: Abdomen soft, non-tender, nondistended. Hepatic and splenic margins not palpable. MUSCULOSKELETAL: No obvious deformities. No clubbing. No cyanosis. No edema. NEUROLOGICAL: Awake and alert. No obvious cranial nerve deficits. Motor grossly within normal limits. Normal speech. PSYCHIATRIC: Appropriate mood and affect; insight and judgment normal. Course Initial Documented Vital Signs Temperature 98.3 F 08/30/18 12:02 Pulse Rate 98 H 08/30/18 12:02 Respiratory Rate 20 08/30/18 12:02 Blood Pressure 153/73 H 08/30/18 12:02 Pulse Oximetry 95 08/30/18 12:02 Last Documented Vital Signs Temperature 98.3 F 08/30/18 12:02 Pulse Rate 98 H 08/30/18 12:02 Respiratory Rate 20 08/30/18 12:02 Blood Pressure 153/73 H 08/30/18 12:02 Pulse Oximetry 95 08/30/18 12:02 Medical Decision Making MDM Narrative Medical decision making narrative: 53-year-old male with MRSA and E. coli pneumonia. Admission is recommended by his traffic control specialist. He recommends consultation with ID as an inpatient. I am giving the patient 3 nebulizer treatments in the ER. IV placed and labs sent. I have ordered a chest x-ray as well as his outpatient CT was over a week ago. I placed a call to Dr. Teran to discuss for admission. I have also given him 1 g IV vancomycin. Medical Screen Exam Complete: Yes Emergency Medical Condition: Yes Medical Records Medical records reviewed: Yes I reviewed the patient's medical records. Discharge Plan Discharge Disposition Patient Disposition: ED Admit(ED Internal Use Only) Discharge Details Diagnosis: Community acquired pneumonia due to Escherichia coli, Community acquired pneumonia due to methicillin resistant Staphylococcus aureus (MRSA), COPD with acute exacerbation Physicians Team ED Provider: Hipolito Araujo Rxs /Orders / Referrals /Forms Prescriptions: No Action oxycodone 15 mg Tablet 15 mg PO Q4-6H PRN (Reason: Pain) RF: 0 oxycodone [OxyContin] 40 mg Tablet,Oral Only,Ext.Rel.12 Hr 40 mg PO TID RF: 0 albuterol sulfate 0.63 mg/3 mL Solution For Nebulization 0.63 mg INHALATION Q4H PRN (Reason: Shortness Of Breath) RF: 0 atorvastatin 40 mg Tablet 40 mg PO DAILY NEB RF: 0 amitriptyline 50 mg Tablet 50 mg PO DAILY NEB RF: 0 hydrochlorothiazide 12.5 mg Capsule 12.5 mg PO DAILY RF: 0 omeprazole 20 mg Capsule,Delayed Release(Dr/Ec) 20 mg PO DAILY RF: 0 budesonide-formoterol [Symbicort] 80-4.5 mcg/actuation Hfa Aerosol Inhaler 2 puff INHALATION BID RF: 0 oxycodone [OxyContin] 40 mg Tablet,Oral Only,Ext.Rel.12 Hr 40 mg PO Q12H RF: 0 ProAir HFA RF: 0 Discharge Interventions Interventions: Vital Signs Last Done: 08/30/18 12:02 Status ED Status: With Doctor
--- NOTE | 2018-08-30 14:57 | XR ---
EXAM DATE: 08/30/2018 2:49 PM EST AGE/SEX: 53 years / Male INDICATIONS: Short of breath. CLINICAL DATA: This is the patient's initial encounter. Patient reports that signs and symptoms have been present for 1 day and indicates a pain score of 0/10. MEDICAL/SURGICAL HISTORY: None. None. COMPARISON: [facility] [place]ST 1V SINGLE AP, 07/16/2018. [facility] [place], CHEST PA & LAT, 10/31/2017. . FINDINGS: Portable AP view of the chest demonstrates a normal-sized cardiac silhouette. EKG lines overlie the p atient. Lungs are underinflated with mild opacity at the left lung base. Left hemidiaphragm is mildly elevated. No pleural effusion or pneumothorax is identified. The bones and soft tissues demonstrate no acute finding. CONCLUSION: Underinflation with mild opacity at the left lung base which could represent either subsegmental atel ectasis or mild consolidation. Electronically signed by: Johan Webster MD 08/30/2018 2:56 PM EST
[2018-08-30] MEDS ORDERED: Acetaminophen 325 MG Tablet PO PRN (15:00)
[2018-08-30] MEDS ORDERED: Bisacodyl 10 MG Supp RECTAL PRN (15:00)
[2018-08-30 15:05] LABS: Baso % (Auto) 0.4 % (0.0-2.0); Eos # (Auto) 0.3 th/mm3 (0.0-0.4); Eos % (Auto) 2.2 % (0.0-4.0); Hematocrit 43.1 % (39.0-51.0); Hemoglobin 15.1 gm/dL (13.0-17.0); Lymph # (Auto) 3.3 th/mm3 (1.0-4.8); Lymph % (Auto) 25.9 % (9.0-44.0); Mean Corpuscular Volume 99.9 fL (80.0-100.0); Mean Platelet Volume 7.5 fL (7.0-11.0); Mono # (Auto) 0.7 th/mm3 (0.0-0.9); Mono % (Auto) 5.2 % (0.0-8.0); Neut # (Auto) 8.5 th/mm3 (1.8-7.7); Neut % (Auto) 66.3 % (16.0-70.0); Platelet Count 297 th/mm3 (150-450); Red Blood Count 4.31 mil/mm3 (4.50-5.90); Red Cell Distribution Width 14.9 % (11.6-17.2); White Blood Count 12.8 th/mm3 (4.0-11.0)
[2018-08-30 15:43] LABS: Alanine Aminotransferase 26 U/L (12-78); Albumin 4.3 g/dL (3.4-5.0); Anion Gap 5 meq/L (5-15); Aspartate Aminotransferase 23 U/L (15-37); Blood Urea Nitrogen 8 mg/dL (7-18); Calcium 9.2 mg/dL (8.5-10.1); Carbon Dioxide 30.1 meq/L (21.0-32.0); Chloride 102 meq/L (98-107); Glomerular Filtration Rate 81 mL/min (>89); Glucose,Random 81 mg/dL (74-106); Potassium 3.3 meq/L (3.5-5.1); Sodium 137 meq/L (136-145)
[2018-08-30 15:46] LABS: Alkaline Phosphatase 87 U/L (45-117); Total Protein 8.4 g/dL (6.4-8.2)
[2018-08-30] MEDS: Enoxaparin Inj 40 MG/0.4 ML Syringe SQ SCH (15:58)
--- NOTE | 2018-08-30 16:40 | P.HPIM ---
History of Present Illness Primary Care Physician: Mohamud Martinez MD Chief Complaint: Shortness of breath and cough History of Present Illness: 53-year-old white male with a history of COPD with asthma, chronic neck and back pain on chronic narcotics, hypertension, hyperlipidemia was instructed to come to the emergency room by his tablet making machine operator helper due to recent sputum cultures for MRSA E. coli with community- acquired pneumonia. Apparently, patient has been struggling with increasing shortness of breath during the past 2 months worse with physical exertion associated with a productive cough with white sputum. He was smoking 1 pack of sugars per day has now cut down to 8 cigarettes daily. He has not had any chills and fever nor any recent weight loss. He recently had an outpatient CT of the chest through the [facility] and per tablet making machine operator helper, Dr. Collins and had noted bilateral consolidation with pneumonia. He denies any associated chest pain with the symptoms. He reports he is currently taking chronic narcotics for chronic neck and back pain and usually ambulates with assistance of cane. Diagnosis (1) COPD with acute exacerbation: (2) Community acquired pneumonia due to Escherichia coli: (3) Community acquired pneumonia due to methicillin resistant Staphylococcus aureus (MRSA): Inpatient Certification Inpatient Certification: I certify that the inpatient services were ordered in accordance with Medicare regulations governing the order. This includes certification that hospital inpatient services are reasonable and necessary and in the case of services not specified as inpatient-only under 42 CFR 419.22(n), that they are appropriately provided as inpatient services in accordance to with the 2-midnight benchmark under 43 CFR 412.3(e) Estimated Total Length of Stay (Days): 3 Plans for Post Hospital Care: Home Review of Systems Constitutional: Reports as per HPI, Denies body ache(s), Denies chills, Denies fatigue, Denies fever(s) and Denies headache(s) Eyes: Denies blurry vision, Denies change in vision and Denies eye pain Ears, Nose, Mouth, and Throat: Denies abnormal hearing, Denies headache(s), Denies mouth pain, Denies nasal congestion, Denies neck pain and Denies sore throat Cardiovascular: Denies chest pain, Denies pedal edema, Denies palpitations and Reports dyspnea Respiratory: Reports chest congestion, Reports cough, Reports excessive phlegm production, Reports dyspnea and Reports wheezing Gastrointestinal: Denies abdominal pain, Reports constipation, Denies loose stools, Denies nausea and Denies vomiting Musculoskeletal: Reports back pain, Denies myalgias, Reports arthralgias, Reports neck pain and Denies numbness Skin/Breast: Denies new lesions and Denies rash Neurologic: Denies abnormal hearing, Reports abnormal gait, Denies frequent falls, Denies headache(s), Denies focal weakness, Denies memory loss, Denies numbness, Reports radicular pain and Reports weakness Comments: Right lower leg slight weakness due to herniated lumbar disc Psychiatric: Denies anxiety, Denies depression and Denies memory loss Endocrine: Denies cold intolerance, Denies heat intolerance and Denies palpitations Hematologic/Lymphatic: Denies easy bleeding and Denies easy bruising [facility] Medical History Medical History Herniated disc (Acute) Asthma (Chronic) COPD (chronic obstructive pulmonary disease) (Chronic) HTN (hypertension) (Chronic) Hyperlipidemia (Chronic) Neuropathy (Chronic) Surgical History Surgical History History of ankle surgery (Chronic) History of bilateral knee replacement (Chronic) H/O elbow surgery (Acute) Family History Family History Father Heart disease COPD (chronic obstructive pulmonary disease) Social History Social History Substance History: No History of Abuse Second Hand Smoke Exposure: No Smoking Status: Current every day smoker Tobacco Type: Cigarettes How Often Do You Have a Drink Containing Alcohol: Monthly or less Recent Travel in [facility] within the Last 8 Weeks: No Recent Out of Country Travel within the Last 8 Weeks: No Immunization History Tetanus Immunization: <5 Years Medications and Allergies Allergies Allergy/AdvReac Type Severity Reaction Status Date / Time No Known Allergies Allergy Verified 08/30/18 12:08 Home Medications Medication Instructions Recorded Confirmed Type albuterol sulfate 0.63 mg INHALATION Q4H PRN 07/16/18 08/30/18 History oxycodone 15 mg PO Q4-6H PRN 07/16/18 08/30/18 History oxycodone [OxyContin] 40 mg PO TID 07/16/18 08/30/18 History ProAir HFA 08/30/18 History amitriptyline 50 mg PO DAILY NEB 08/30/18 08/30/18 History atorvastatin 40 mg PO DAILY NEB 08/30/18 08/30/18 History budesonide-formoterol [Symbicort] 2 puff INHALATION BID 08/30/18 08/30/18 History hydrochlorothiazide 12.5 mg PO DAILY 08/30/18 08/30/18 History omeprazole 20 mg PO DAILY 08/30/18 08/30/18 History Active Medications: Active Medications Acetaminophen (Tylenol) 650 mg PO Q4H PRN PRN Reason: Temp > 100.4 Al Hydroxide/Mg Hydroxide (Milk Of Magnesia Liq) 30 ml PO Q12H PRN PRN Reason: Mild Constipation Bisacodyl (Dulcolax Supp) 10 mg RECTAL DAILY PRN PRN Reason: SEVERE CONSITIPATION Enoxaparin Sodium (Lovenox Inj) 40 mg SQ Q24H KENDRA Last Admin: 08/30/18 15:58 Dose: Not Given Lactulose (Lactulose Liq) 30 ml PO DAILY PRN PRN Reason: SEVERE CONSITIPATION Ondansetron HCl (Zofran Inj) 4 mg IV.PUSH Q6H PRN PRN Reason: NAUSEA OR VOMITING Senna/Docusate Sodium (Mariposa-Colace) 1 tab PO BID KENDRA Sodium Chloride (Ns Flush) 2 ml IV.FLUSH BID KENDRA Sodium Chloride (Ns Flush) 2 ml IV.FLUSH PRN PRN PRN Reason: FLUSH AFTER USING IV ACCESS Physical Exam Vital signs: Last Vital Signs Temp 98.3 F 08/30/18 12:02 Pulse 83 08/30/18 15:08 Resp 20 08/30/18 15:08 BP 153/73 H 08/30/18 12:02 Pulse Ox 95 08/30/18 12:02 Intake & Output 08/28/18 08/29/18 08/30/18 08/31/18 06:59 06:59 06:59 06:59 Intake Total 250 / 250 Balance 250 / 250 Weight 97.522 kg Narrative: GENERAL: Well-nourished well-developed white male no acute distress SKIN: Warm and dry. HEAD: Atraumatic. Normocephalic. EYES: Pupils equal and round. No scleral icterus. No injection or drainage. ENT: No nasal bleeding or discharge. Mucous membranes pink and moist. NECK: Trachea midline. No JVD. CARDIOVASCULAR: Regular rate and rhythm. RESPIRATORY: Diffuse expiratory wheezes bilaterally GASTROINTESTINAL: Abdomen soft, non-tender, nondistended. Hepatic and splenic margins not palpable. MUSCULOSKELETAL: Extremities without clubbing, cyanosis, or edema. No obvious deformities. NEUROLOGICAL: Awake and alert to person place time and situation. No obvious cranial nerve deficits. Motor grossly within normal limits. Five out of 5 muscle strength in the arms and legs. Normal speech. PSYCHIATRIC: Appropriate mood and affect; insight and judgment normal. Results Labs CBC & Chem 7: 08/30/18 14:30 08/30/18 14:30 Imaging Impressions Chest X-Ray 08/30/18 14:39 CONCLUSION: Underinflation with mild opacity at the left lung base which could represent either subsegmental atelectasis or mild consolidation. Caprini VTE Risk Assessment Caprini VTE Risk Assessment: Moderate/High Risk (score >= 2) Caprini Risk Assessment Model: Point Value = 1 Point Value = 2 Point Value = 3 Point Value = 5 Age 41-60 Minor surgery BMI > 25 kg/m2 Swollen legs Varicose veins or History of unexplained or recurrent spontaneous Oral contraceptives or hormone replacement Sepsis (< 1 month) Serious lung disease, including pneumonia (< 1 month) Abnormal pulmonary function Acute myocardial infarction Congestive heart failure (< 1 month) History of inflammatory bowel disease Medical patient at bed rest Age 61-74 Arthroscopic surgery Major open surgery (> 45 min) Laparoscopic surgery (> 45 min) Malignancy Confined to bed (> 72 hours) Immobilizing plaster cast Central venous access Age >= 75 History of VTE Family history of VTE Factor V Leiden Prothrombin [id number] Lupus anticoagulant Anticardiolipin antibodies Elevated serum homocysteine Heparin-induced thrombocytopenia Other congenital or acquired thrombophilia Stroke (< 1 month) Elective arthroplasty Hip, pelvis, or leg fracture Acute spinal cord injury (< 1 month) Prophylaxis Regimen: Total Risk Factor Score Risk Level Prophylaxis Regimen 0-1 Low Early ambulation 2 Moderate Order ONE of the following: *Sequential Compression Device (SCD) *Heparin 5000 units SQ BID 3-4 Higher Order ONE of the following medications: *Heparin 5000 units SQ TID *Enoxaparin/Lovenox 40 mg SQ daily (WT < 150 kg, CrCl > 30 mL/min) *Enoxaparin/Lovenox 30 mg SQ daily (WT < 150 kg, CrCl > 10-29 mL/min) *Enoxaparin/Lovenox 30 mg SQ BID (WT < 150 kg, CrCl > 30 mL/min) AND/OR *Sequential Compression Device (SCD) 5 or more Highest Order ONE of the following medications: *Heparin 5000 units SQ TID (Preferred with Epidurals) *Enoxaparin/Lovenox 40 mg SQ daily (WT < 150 kg, CrCl > 30 mL/min) *Enoxaparin/Lovenox 30 mg SQ daily (WT < 150 kg, CrCl > 10-29 mL/min) *Enoxaparin/Lovenox 30 mg SQ BID (WT < 150 kg, CrCl > 30 mL/min) AND *Sequential Compression Device (SCD) Assessment and Plan (1) COPD with acute exacerbation: Code(s): J44.1 - Chronic obstructive pulmonary disease with (acute) exacerbation Status: Acute (2) Community acquired pneumonia due to Escherichia coli: Code(s): J15.5 - Pneumonia due to Escherichia coli Status: Acute (3) Community acquired pneumonia due to methicillin resistant Staphylococcus aureus (MRSA): Code(s): J15.212 - Pneumonia due to Methicillin resistant Staphylococcus aureus Status: Acute Plan 53-year-old white male sent from tablet making machine operator helper office for recent diagnosis of pneumonia with sputum positive for MRSA and E. coli with failed outpatient treatment 1. MRSA and E. coli pneumonia -admit patient for IV vancomycin and IV Levaquin. Consult infectious disease for further evaluation and recommendations. Checks sputum culture and sensitivity. Consult his tablet making machine operator helper Dr. Freddie Collins for further recommendations. 2. COPD with asthma with acute exacerbation likely due to the infection. Continue with steroids with DuoNeb treatments. Oxygen support as needed. 3. History of hyperlipidemiaresume statin 4. Hypertension historyresume HCTZ 5. History of chronic neck and back pain on chronic narcoticsresume home narcotics, safe use of narcotics discussed with the patient. Continue with bowel regimen to prevent constipation. 6. DVT prophylaxisLovenox.
--- NOTE | 2018-08-30 18:27 | CT ---
EXAM DATE: 08/30/2018 6:17 PM EST AGE/SEX: 53 years / Male INDICATIONS: Shortness of breath and cough. CLINICAL DATA: This is the patient's initial encounter. Patient reports that signs and symptoms have been present for 2 months and indicates a pain score of 5/10. MEDICAL/SURGICAL HISTORY: Asthma. Chronic obstructive pulmonary disease. Hypertension. None. RADIATION DOSE: 9.59 CTDI (mGy) COMPARISON: No prior exams available for comparison. TECHNIQUE: Multiple contiguous axial images were obtained through the chest without contrast. Image s were obtained in suspended respiration using multiple row detector helical technique. Using automa juan luis exposure control and adjustment of the mA and/or kV according to patient size, radiation dose was kept as low as reasonably achievable to obtain optimal diagnostic quality images. DICOM format imag e data is available electronically for review and comparison. FINDINGS: Tree-in-bud type infiltrates involve both lungs, upper lobe predominant on the right and lower lobe p redominant on the left. No lobar consolidation demonstrated. No pleural effusion or pneumothorax. There is no mediastinal, hilar or axillary lymphadenopathy. Normal heart size. Coronary artery calcification noted. No acute bony abnormality demonstrated. CONCLUSION: 1. Tree-in-bud infiltrates of both lungs, mostly right upper lobe and left lower lobe. These finding s are typically seen in the setting of an inflammatory or atypical infectious process of the distal a irways. 2. Coronary artery calcification. Electronically signed by: Johan Coles MD 08/30/2018 6:26 PM EST
[2018-08-30 20:51] LABS: Alanine Aminotransferase 22 U/L (12-78); Albumin 3.6 g/dL (3.4-5.0); Alkaline Phosphatase 73 U/L (45-117); Anion Gap 6 meq/L (5-15); Aspartate Aminotransferase 14 U/L (15-37); Blood Urea Nitrogen 7 mg/dL (7-18); Calcium 8.9 mg/dL (8.5-10.1); Carbon Dioxide 26.8 meq/L (21.0-32.0); Chloride 105 meq/L (98-107); Glomerular Filtration Rate Greater Than 89 mL/min (>89); Glucose,Random 112 mg/dL (74-106); Potassium 3.2 meq/L (3.5-5.1); Sodium 138 meq/L (136-145); Total Protein 7.2 g/dL (6.4-8.2)
[2018-08-30] MEDS: oxyCODONE HCL 40 MG Controlled Release Tablet PO SCH (21:14)
[2018-08-30] MEDS: Senna/Docusate Sodium 8.6/50 MG Tablet PO SCH (21:15)
[2018-08-30] MEDS: MethylPREDNISolone Sod Succinate Inj 40 MG/ML Vial IV.PUSH SCH (21:15)
[2018-08-30] MEDS: Budesonide-Formoterol 80/4.5 MCG 6.9 GM Inhaler INH SCH (21:15)
[2018-08-31] MEDS: oxyCODONE HCL 40 MG Controlled Release Tablet PO SCH ×3 (03:29→19:51)
[2018-08-31] MEDS: MethylPREDNISolone Sod Succinate Inj 40 MG/ML Vial IV.PUSH SCH ×3 (05:16→21:59)
[2018-08-31 07:12] LABS: Baso % (Auto) 0.1 % (0.0-2.0); Hematocrit 40.3 % (39.0-51.0); Hemoglobin 14.2 gm/dL (13.0-17.0); Lymph # (Auto) 0.8 th/mm3 (1.0-4.8); Lymph % (Auto) 17.2 % (9.0-44.0); Mean Corpuscular HGB Conc 35.3 % (32.0-36.0); Mean Corpuscular Hemoglobin 34.6 pg (27.0-34.0); Mean Corpuscular Volume 98.2 fL (80.0-100.0); Mean Platelet Volume 7.5 fL (7.0-11.0); Mono # (Auto) 0.1 th/mm3 (0.0-0.9); Mono % (Auto) 1.3 % (0.0-8.0); Neut % (Auto) 81.4 % (16.0-70.0); Platelet Count 281 th/mm3 (150-450); Red Cell Distribution Width 14.2 % (11.6-17.2); White Blood Count 4.9 th/mm3 (4.0-11.0)
[2018-08-31 07:39] LABS: Calcium 8.5 mg/dL (8.5-10.1); Carbon Dioxide 26.8 meq/L (21.0-32.0); Potassium 4.1 meq/L (3.5-5.1)
[2018-08-31] MEDS: Pantoprazole Sodium 20 MG DR Tablet PO SCH (09:43)
[2018-08-31] MEDS: Senna/Docusate Sodium 8.6/50 MG Tablet PO SCH ×2 (09:46→20:08)
[2018-08-31] MEDS ORDERED: Vancomycin Consult Pharmacy OTHER PRN (10:30)
[2018-08-31] MEDS ORDERED: Vancomycin Inj 1,250 MG in Sodium Chlor 0.9% Inj 250 ML IV.SIG SCH (11:00)
[2018-08-31] MEDS: guaiFENesin 600 MG ER Tablet PO SCH ×2 (11:02→20:08)
[2018-08-31] MEDS: Budesonide-Formoterol 80/4.5 MCG 6.9 GM Inhaler INH SCH ×2 (11:03→20:08)
[2018-08-31] MEDS: Vancomycin Inj 1,750 MG in Sodium Chlor 0.9% Inj 500 ML IV.SIG SCH (13:02)
--- NOTE | 2018-08-31 14:15 | MB ---
cc: Rush Collins MD DATE: 08/31/2018 PULMONARY CONSULTATION HISTORY OF PRESENT ILLNESS: Mr. Laureano is a 53-year-old white male whom I first saw in my office last week, who was a smoker his entire adult ; probably 40-50 pack-years, presented with congestion, dyspnea and purulent sputum. He had been seen at the [facility] and had pulmonary functions on 07/27/2018. The FEV1 was 53%. He had also had a CT scan and although I did not have that film to review, it reported nodular infiltrates with at least 1 cavity. The patient has been to the emergency room recently and sent home, but only had a regular chest x-ray. He was not acutely ill, so he continue his bronchodilator regimen and I sent him for sputum. I got that back yesterday and he was growing heavy growth of both MRSA and Escherichia coli so I referred him back to the emergency room, spoke to the emergency room physician and we had him admitted. He has COPD with obvious significant infection, pneumonia and requires inpatient therapy. I saw him in his room today. He is feeling a little better with bronchodilator therapy, corticosteroids and antibiotics have been begun. Infectious Disease is also seeing him. He has had no hemoptysis. No chest pain. There is no significant prior cardiovascular history. PAST MEDICAL HISTORY: He has had multiple orthopedic procedures including right shoulder surgery, lumbosacral degenerative disease but no surgery just chronic pain. Also, bilateral knee replacements. He is followed by Dr. Sarmiento as an outpatient and is on chronic narcotic therapy. He has had ulnar nerve relocation in both elbows, COPD and no prior history of malignancy. MEDICATIONS: As an outpatient include: 1. A statin. 2. Elavil 3. Oxycodone. 4. Albuterol. 5. Symbicort. MEDICATIONS HERE IN THE HOSPITAL: Are reviewed and recorded in the EMR. ALLERGIES: NONE KNOWN. SOCIAL HISTORY: He is , lives alone, has a dog. No alcohol use or illicit drugs. Smokes about 1/2 to 1 pack per day; previously had smoked up to 2 packs per day. 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 REVIEW OF SYSTEMS: Appetite has been poor recently, weight is dropping although not significant at this point. He has had no visual complaints. No orthopnea, PND or palpitations. No significant edema. No night sweats. He has multiple joint pains related to his arthritis. PHYSICAL EXAMINATION: GENERAL: He is awake, alert, comfortable at rest. VITAL SIGNS: Blood pressure of 128/67, temperature is 97, pulse is 80, respirations are 18-22 and his O2 saturation on 5 liters is 92%. HEENT: Sclerae are anicteric. NECK: Veins are flat. Diffuse wheezing in both lungs; minimal congestion. HEART: Regular rhythm. No harsh murmur. ABDOMEN: Soft. EXTREMITIES: He has no peripheral edema, calf tenderness or cyanosis. AVAILABLE DATA: White count on admission was 12.8 with left shift, hemoglobin 15, BUN 9, creatinine 0.9, albumin 4.3. Sputum here in the hospital is pending. Blood cultures have been negative at 1 day. DISCUSSION: Mr. Laureano presents with a longstanding smoking history, at least 2 significant organisms in his sputum; both MRSA and Escherichia coli with a chest x-ray here suggesting peripheral bronchiolitis more than a cavitary pneumonia, which was suggested by the outpatient scan. He has been started on aerosolized bronchodilators along with Symbicort, IV methylprednisolone, Levaquin, vancomycin. We will continue this therapy for the next 24-48 hours, monitor his clinical status and review his followup sputum cultures. I have had a detailed discussion with Mr. Laureano today about what needs to be done. He also must consider stop smoking at this point in light of the severity is underlying COPD. Further diagnostic and/or therapeutic intervention will depend on his ongoing clinical course. RMD MIGUELANGEL Dorsey/karlos , 01:54 PM , 02:03 PM
--- NOTE | 2018-08-31 14:29 | P.PNIM ---
Subjective Interval history: was short of breath and wheezing when I saw him this morning. Physical Exam Vital signs: Last Vital Signs Temp 97.7 F 08/31/18 12:00 Pulse 70 08/31/18 12:00 Resp 18 08/31/18 12:00 BP 128/67 08/31/18 12:00 Pulse Ox 92 L 08/31/18 12:00 Intake & Output 08/29/18 08/30/18 08/31/18 09/01/18 06:59 06:59 06:59 06:59 Intake Total 630 / 630 150 / 150 Output Total 900 / 900 Balance -270 / -270 150 / 150 Weight 98.2 kg Narrative: GENERAL: Well-nourished well-developed white male no acute distress SKIN: Warm and dry. HE ENT:not pale,anicteric, nasal canula in situ. NECK:no JVD CARDIOVASCULAR: Regular rate and rhythm.s1s2 normal. no murmurs. RESPIRATORY:Diminished air entry bilaterally with diffuse expiratory wheezes bilaterally. no rales. GASTROINTESTINAL: Abdomen soft, non-tender, nondistended. Hepatic and splenic margins not palpable. MUSCULOSKELETAL: Extremities without clubbing, cyanosis, or edema. No obvious deformities. NEUROLOGICAL: Awake and alert to person place time and situation. No obvious cranial nerve deficits. Motor grossly within normal limits. Five out of 5 muscle strength in the arms and legs. Normal speech. PSYCHIATRIC: Appropriate mood and affect; insight and judgment normal. Results Labs CBC & Chem 7: 08/31/18 06:18 08/31/18 06:18 Labs: Microbiology 08/31/18 10:33 Sputum - Expectorated Sputum Gram Stain - Final 08/30/18 20:04 Blood - Peripheral Aerobic Blood Culture - Preliminary No growth in 1 day 08/30/18 20:04 Blood - Peripheral Anaerobic Blood Culture - Preliminary No growth in 1 day 08/30/18 19:59 Blood - Peripheral Aerobic Blood Culture - Preliminary No growth in 1 day 08/30/18 19:59 Blood - Peripheral Anaerobic Blood Culture - Preliminary No growth in 1 day Imaging Imaging: Impressions Chest CT 08/30/18 00:00 CONCLUSION: 1. Tree-in-bud infiltrates of both lungs, mostly right upper lobe and left lower lobe. These findings are typically seen in the setting of an inflammatory or atypical infectious process of the distal airways. 2. Coronary artery calcification. Chest X-Ray 08/30/18 14:39 CONCLUSION: Underinflation with mild opacity at the left lung base which could represent either subsegmental atelectasis or mild consolidation. Assessment and Plan (1) COPD with acute exacerbation: Code(s): J44.1 - Chronic obstructive pulmonary disease with (acute) exacerbation Status: Acute (2) Community acquired pneumonia due to Escherichia coli: Code(s): J15.5 - Pneumonia due to Escherichia coli Status: Acute (3) Community acquired pneumonia due to methicillin resistant Staphylococcus aureus (MRSA): Code(s): J15.212 - Pneumonia due to Methicillin resistant Staphylococcus aureus Status: Acute Plan 53-year-old white male sent from program professional office for recent diagnosis of pneumonia with sputum positive for MRSA and E. coli with failed outpatient treatment Acute problems: 1. Community acquired pneumonia: sputum culture done in outpt setting grew MRSA and E. coli pneumonia. Sputum culture here has been sent, gram stain- g+ cocci, g+rods continue IV vancomycin and IV Levaquin. added mucinex. appreciate pulmonary consult recs. ID consult pending. 2. Asthma/COPD acute exacerbation likely due to the infection.Continue with steroids with DuoNeb treatments, prn Oxygen supplementation. Stable chronic conditions: #History of hyperlipidemiacont statin #Hypertension historycont HCTZ #History of chronic neck and back pain on chronic narcoticscont home narcotics with bowel regimen to prevent constipation. DVT prophylaxisLovenox Progress Note: Quality VTE Deep Vein Thrombosis/Pulmonary Embolism Present on Admission: No
[2018-08-31] MEDS: Enoxaparin Inj 40 MG/0.4 ML Syringe SQ SCH (15:10)
[2018-08-31 15:28] LABS: ABG Base Excess 1.8 mmol/L (-2-2); ABG PCO2 40 mmHg (38-42); ABG PO2 67 mmHg (61-120)
--- NOTE | 2018-08-31 16:02 | P.CONID ---
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 Essentially pt has a h/o COPD asthma and tobaccoism up to [address] Melina Collins's office about 2 weeks ago with c/o cough and SOB He was not particularly sick abd he did not started him on abx but sent hi for sputum culture That returned as MRSA, E.coli Pt has a h/o productive cough with white sputum, unintentionnal weight loss x 2 mos On presentation afebrile and with leukocytosis of 12.8 K No risk factors for TB thru occupation or trave or known exposure Review of Systems All other systems reviewed negative except as stated in HPI PMFSH - History History Provided By: Patient - Medical History Medical History: Medical History (Last Reviewed 08/31/18 @ 17:33 by Marycarmen Rosas MD) Herniated disc Asthma COPD (chronic obstructive pulmonary disease) HTN (hypertension) Hyperlipidemia Neuropathy - Surgical History Surgical History: Surgical History (Last Reviewed 08/31/18 @ 17:33 by Marycarmen Rosas MD) History of ankle surgery History of bilateral knee replacement H/O elbow surgery - Family History Family History: Family History (Last Reviewed 08/31/18 @ 17:33 by Marycarmen Rosas MD) Father Heart disease COPD (chronic obstructive pulmonary disease) - Social History I have reviewed the patient's Social History: Yes - Tobacco History Second Hand Smoke Exposure: Yes Tobacco Use In Past 30 Days: Yes Smoking Status: Heavy tobacco smoker Tobacco Type: Cigarettes - Alcohol History How Often Do You Have a Drink Containing Alcohol: Never - Substance Use History Substance History: No History of Abuse - Travel History Recent Travel in the [place] Within the Last 8 Weeks: No Recent Travel Out of the Country Within the Last 8 Weeks: No - Immunization History Tetanus Immunization: <5 Years Hx Influenza Vaccine This Season: No Medications and Allergies Active Medications: Active Medications Acetaminophen (Tylenol) 650 mg PO Q4H PRN PRN Reason: Temp > 100.4/PAIN SCALE 1-5 Last Admin: 08/31/18 14:23 Dose: 650 mg Al Hydroxide/Mg Hydroxide (Milk Of Magnesia Liq) 30 ml PO Q12H PRN PRN Reason: Mild Constipation Albuterol (Duoneb Neb (Prn)) 1 ampul NEB Q2HR NEB PRN PRN Reason: SHORTNESS OF BREATH Last Admin: 08/31/18 10:26 Dose: 1 ampul Albuterol (Duoneb Neb (Casie)) 1 ampul NEB Q6HR WHILE AWAKE NEB [facility] Last Admin: 08/31/18 15:13 Dose: 1 ampul Amitriptyline HCl (Elavil) 50 mg PO HS [facility] Last Admin: 08/30/18 21:14 Dose: 50 mg Atorvastatin Calcium (Lipitor) 40 mg PO HS [facility] Last Admin: 08/30/18 21:14 Dose: 40 mg Bisacodyl (Dulcolax Supp) 10 mg RECTAL DAILY PRN PRN Reason: SEVERE CONSITIPATION Budesonide/Formoterol Fumarate (Symbicort 80/4.5 Mcg Inh) 2 puff INH BID [facility] Last Admin: 08/31/18 11:03 Dose: 2 puff Enoxaparin Sodium (Lovenox Inj) 40 mg SQ Q24H [facility] Last Admin: 08/31/18 15:10 Dose: Not Given Guaifenesin (Mucinex Er) 600 mg PO BID [facility] Last Admin: 08/31/18 11:02 Dose: 600 mg Hydrochlorothiazide (Microzide) 12.5 mg PO DAILY [facility] Last Admin: 08/31/18 09:43 Dose: 12.5 mg Levofloxacin/Dextrose (Levaquin 750 Mg Premix Inj) 150 mls @ 100 mls/hr IV.SIG Q24H [facility] Last Infusion: 08/31/18 12:33 Dose: Infused Vancomycin HCl 1,750 mg/ (Sodium Chloride) 517.5 mls @ 250 mls/hr IV.SIG Q12H [facility] Last Infusion: 08/31/18 15:07 Dose: Infused Lactulose (Lactulose Liq) 30 ml PO DAILY PRN PRN Reason: SEVERE CONSITIPATION Methylprednisolone Sodium Succinate (Solumedrol Inj) 40 mg IV.PUSH Q8HR [facility] Last Admin: 08/31/18 13:02 Dose: 40 mg Miscellaneous Information ([facility] Ordered Lab Info) 0 each OTHER ONCE ONE Stop: 09/02/18 00:46 Nicotine (Habitrol 14 Mg Patch.24 Hr) 1 patch T-DERMAL DAILY [facility] Last Admin: 08/31/18 14:23 Dose: 1 patch Ondansetron HCl (Zofran Inj) 4 mg IV.PUSH Q6H PRN PRN Reason: NAUSEA OR VOMITING Oxycodone HCl (Oxycontin Cr) 40 mg PO Q8H [facility] Last Admin: 08/31/18 12:08 Dose: 40 mg Oxycodone HCl (Roxicodone) 15 mg PO Q6H PRN PRN Reason: PAIN SCALE 6-10 Last Admin: 08/31/18 06:00 Dose: 15 mg Pantoprazole Sodium (Protonix) 20 mg PO DAILY [facility] Last Admin: 08/31/18 09:43 Dose: 20 mg Patch Removal (Remove Old Patch) 0 each T-DERMAL HS [facility] Last Admin: 08/31/18 14:21 Dose: Not Given Pharmacy Profile Note (Vancomycin Consult Pharmacy) 1 each OTHER UNSCH PRN PRN Reason: Pharmacy to dose Senna/Docusate Sodium ([place]-Colace) 1 tab PO BID [facility] Last Admin: 08/31/18 09:46 Dose: 1 tab Sodium Chloride (Ns Flush) 2 ml IV.FLUSH BID [facility] Last Admin: 08/31/18 09:44 Dose: 2 ml Sodium Chloride (Ns Flush) 2 ml IV.FLUSH PRN PRN PRN Reason: FLUSH AFTER USING IV ACCESS Allergies Allergy/AdvReac Type Severity Reaction Status Date / Time No Known Allergies Allergy Verified 08/30/18 12:08 Home Medications Medication Instructions Recorded Confirmed Type albuterol sulfate 0.63 mg INHALATION Q4H PRN 07/16/18 08/30/18 History oxycodone 15 mg PO Q6H PRN 07/16/18 08/30/18 History oxycodone [OxyContin] 40 mg PO TID 07/16/18 08/30/18 History ProAir HFA 08/30/18 History amitriptyline 50 mg PO HS 08/30/18 08/30/18 History atorvastatin 40 mg PO HS 08/30/18 08/30/18 History budesonide-formoterol [Symbicort] 2 puff INHALATION BID 08/30/18 08/30/18 History hydrochlorothiazide 12.5 mg PO DAILY 08/30/18 08/30/18 History omeprazole 20 mg PO DAILY 08/30/18 08/30/18 History Exam Vital signs: Vital Signs 08/30/18 17:33 08/30/18 20:00 08/30/18 21:18 Temperature 98.0 F 98 F Pulse Rate 81 82 83 Respiratory Rate 18 18 20 Blood Pressure 104/68 104/56 L Pulse Oximetry 94 L 08/31/18 00:00 08/31/18 00:18 08/31/18 04:00 Temperature 97.7 F 97.9 F Pulse Rate 72 85 79 Respiratory Rate 20 18 20 Blood Pressure 111/65 125/65 Pulse Oximetry 94 L 94 L 08/31/18 08:00 08/31/18 08:45 08/31/18 09:41 Temperature 97.7 F Pulse Rate 75 77 89 Respiratory Rate 17 16 Blood Pressure 118/64 130/63 Pulse Oximetry 94 L 93 L 08/31/18 10:27 08/31/18 12:00 08/31/18 15:13 Temperature 97.7 F Pulse Rate 81 70 81 Respiratory Rate 16 18 16 Blood Pressure 128/67 Pulse Oximetry 94 L 92 L Intake & Output 08/30/18 08/31/18 08/31/18 18:59 06:59 18:59 Intake Total 250 / 250 380 / 380 667.5 / 667.5 Output Total 900 / 900 Balance 250 / 250 -520 / -520 667.5 / 667.5 Weight 97.522 kg 98.2 kg Intake: IV 250 / 250 667.5 / 667.5 Levaquin 750 mg Premix Inj 150 150 / 150 ML @ 100 mls/hr IV.SIG Q24H [facility] Rx#:[id number] Vancomycin Inj 1,000 MG In NS 250 / 250 Inj 250 ML @ 250 mls/hr IV.SIG ONCE ONE Rx#:[id number] Vancomycin Inj 1,750 MG In NS 517.5 / 517.5 Inj 500 ML @ 250 mls/hr IV.SIG Q12H [facility] Rx#:[id number] Oral 380 / 380 Output: Urine 900 / 900 - Constitutional no acute distress, obese - Routine HEENT Exam Head: Present: normocephalic, atraumatic Eye: Present: EOMI, PERRL ENT: Present: mucous membranes moist, dentition normal - Routine Neck Exam Present: supple. Absent: JVD, lymphadenopathy - Routine Chest/Breast/Axilla Exam Axillae: Absent: lymphadenopathy - Routine Respiratory Exam Present: decreased breath sounds, CTA bilaterally. Absent: accessory muscle use , rhonchi, wheezes - Routine Cardiovascular Exam Present: RRR, S1, S2. Absent: murmur, gallop - Routine Abdominal Exam Present: soft, normoactive bowel sounds. Absent: tenderness, distended, organomegaly, mass - Routine Extremities Exam Present: clubbing. Absent: cyanosis, edema - Routine Skin Exam Present: intact, dry, warm - Routine Neurological Exam Present: alert, oriented X3, CN II-XII intact. Absent: sensory deficit, motor deficit - Routine Psychiatric Exam Present: normal thought process. Absent: visual hallucinations, cooperative Comments: irritable Results - Labs CBC & Chem 7: 08/31/18 06:18 08/31/18 06:18 Labs: Laboratory Results - last 24 hr 08/30/18 08/30/18 08/31/18 20:04 20:04 06:18 WBC 4.9 D RBC 4.10 L Hgb 14.2 Hct 40.3 MCV 98.2 MCH 34.6 H MCHC 35.3 RDW 14.2 Plt Count 281 MPV 7.5 Neut % (Auto) 81.4 H Lymph % (Auto) 17.2 [place] % (Auto) 1.3 Eos % (Auto) 0.0 Baso % (Auto) 0.1 Neut # (Auto) 4.0 Lymph # (Auto) 0.8 L [place] # (Auto) 0.1 Eos # (Auto) 0.0 Baso # (Auto) 0.0 WBC Differential . Differential Comment Auto diff final Puncture Site Patient Temperature O2 Saturation ABG pH ABG pCO2 ABG pO2 ABG HCO3 ABG O2 Content ABG Base Excess ABG Methemoglobin Anthony Test Hemoglobin Carboxyhemoglobin Inspired O2 Critical Value Sodium 138 Potassium 3.2 L Chloride 105 Carbon Dioxide 26.8 Anion Gap 6 BUN 7 Creatinine 0.84 Estimated GFR Greater than 89 Random Glucose 112 H Lactic Acid 1.1 Calcium 8.9 Total Bilirubin 0.5 AST 14 L ALT 22 Alkaline Phosphatase 73 Total Protein 7.2 D Albumin 3.6 D 08/31/18 08/31/18 06:18 15:23 WBC RBC Hgb Hct MCV MCH MCHC RDW Plt Count MPV Neut % (Auto) Lymph % (Auto) [place] % (Auto) Eos % (Auto) Baso % (Auto) Neut # (Auto) Lymph # (Auto) [place] # (Auto) Eos # (Auto) Baso # (Auto) WBC Differential Differential Comment Puncture Site Right radial Patient Temperature 98.6 O2 Saturation 91 ABG pH 7.43 H ABG pCO2 40 ABG pO2 67 ABG HCO3 26 ABG O2 Content 17.5 ABG Base Excess 1.8 ABG Methemoglobin 1.2 Anthony Test Present Hemoglobin 13.7 Carboxyhemoglobin 1.3 Inspired O2 21 Critical Value No Sodium 137 Potassium 4.1 D Chloride 104 Carbon Dioxide 26.8 Anion Gap 6 BUN 9 Creatinine 0.96 Estimated GFR 82 L Random Glucose 182 H Lactic Acid Calcium 8.5 Total Bilirubin AST ALT Alkaline Phosphatase Total Protein Albumin - Imaging Impressions Chest CT 08/30/18 00:00 CONCLUSION: 1. Tree-in-bud infiltrates of both lungs, mostly right upper lobe and left lower lobe. These findings are typically seen in the setting of an inflammatory or atypical infectious process of the distal airways. 2. Coronary artery calcification. Assessment and Plan - Plan Reji- in - bud findings and predisposing factor s , suspicious fro pulmonary NTM infection Low trisk for TB thru exposure history PNA, MRSA E.coli cont current abx AFB clx Pt can be w/u for NTM as o/p and OK to d/c hopm,e when respiratory stabnle dw Dr Melina Collins
[2018-08-31] MEDS: Duloxetine 60 MG DR Capsule PO SCH (21:59)
[2018-09-01] MEDS: Vancomycin Inj 1,750 MG in Sodium Chlor 0.9% Inj 500 ML IV.SIG SCH ×2 (01:14→13:32)
[2018-09-01] MEDS ORDERED: Benzocaine/Menthol 15 MG/3.6 MG SF Lozenge BUCCAL PRN (01:26)
[2018-09-01] MEDS: oxyCODONE HCL 40 MG Controlled Release Tablet PO SCH ×3 (03:55→20:34)
[2018-09-01] MEDS: MethylPREDNISolone Sod Succinate Inj 40 MG/ML Vial IV.PUSH SCH ×2 (06:35→20:36)
[2018-09-01 07:55] LABS: Glomerular Filtration Rate Greater Than 89 mL/min (>89)
[2018-09-01] MEDS: Pantoprazole Sodium 20 MG DR Tablet PO SCH (09:22)
[2018-09-01] MEDS: guaiFENesin 600 MG ER Tablet PO SCH ×2 (09:22→20:34)
[2018-09-01] MEDS: Senna/Docusate Sodium 8.6/50 MG Tablet PO SCH ×2 (09:23→20:34)
[2018-09-01] MEDS: Duloxetine 60 MG DR Capsule PO SCH ×2 (09:23→20:35)
[2018-09-01] MEDS: Budesonide-Formoterol 80/4.5 MCG 6.9 GM Inhaler INH SCH ×2 (09:28→20:37)
--- NOTE | 2018-09-01 11:45 | P.PNIM ---
Subjective Interval history: did not sleep last night. feeling somewhat better with his breathing today. He is still coughing, less phlegm today. Physical Exam Vital signs: Last Vital Signs Temp 97.9 F 09/01/18 04:00 Pulse 94 H 09/01/18 10:13 Resp 20 09/01/18 10:13 BP 112/64 09/01/18 04:00 Pulse Ox 94 L 09/01/18 09:42 Intake & Output 08/30/18 08/31/18 09/01/18 09/02/18 06:59 06:59 06:59 06:59 Intake Total 630 / 630 2937.5 / 2937.5 Output Total 900 / 900 675 / 675 Balance -270 / -270 2262.5 / 2262.5 Weight 98.2 kg 98.3 kg Narrative: GENERAL: Well-nourished well-developed white male no acute distress SKIN: Warm and dry. HEENT:not pale,anicteric, nasal canula in situ. NECK:no JVD CARDIOVASCULAR: Regular rate and rhythm.s1s2 normal. no murmurs. RESPIRATORY:clear to auscultation bilaterally, no wheezes or rales. GASTROINTESTINAL: Abdomen soft, non-tender, nondistended. Hepatic and splenic margins not palpable. MUSCULOSKELETAL: Extremities without clubbing, cyanosis, or edema. No obvious deformities. NEUROLOGICAL: Awake and alert to person place time and situation. No obvious cranial nerve deficits. Motor grossly within normal limits. Five out of 5 muscle strength in the arms and legs. Normal speech. PSYCHIATRIC: Appropriate mood and affect; insight and judgment normal. 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 coli with failed outpatient treatment Acute problems: 1. Community acquired pneumonia: sputum culture done in outpt setting grew MRSA and E. coli pneumonia. Sputum culture here has been sent, gram stain- g+ cocci, g+rods blood culture with no growth to date. continue IV vancomycin , switched to IV Ceftriaxone since E.coli culture was resistant to Levaquin. cont mucinex. appreciate pulmonary and ID consult recs. 2. Asthma/COPD acute exacerbation likely due to the infection.Continue with steroids with DuoNeb treatments, prn Oxygen supplementation. Stable chronic conditions: #History of hyperlipidemiacont statin #Hypertension historycont HCTZ #History of chronic neck and back pain on chronic narcoticscont home narcotics with bowel regimen to prevent constipation. DVT prophylaxisLovenox Progress Note: Quality VTE Deep Vein Thrombosis/Pulmonary Embolism Present on Admission: No
[2018-09-01] MEDS: Enoxaparin Inj 40 MG/0.4 ML Syringe SQ SCH (16:30)
[2018-09-01] MEDS: Melatonin 5 MG Tablet PO PRN (20:34)
[2018-09-02] MEDS: Vancomycin Inj 1,750 MG in Sodium Chlor 0.9% Inj 500 ML IV.SIG SCH ×2 (00:18→12:21)
[2018-09-02] MEDS ORDERED: Pharmacy Ordered Lab Info OTHER ONE (00:45)
[2018-09-02] MEDS: oxyCODONE HCL 40 MG Controlled Release Tablet PO SCH ×3 (03:40→20:50)
[2018-09-02] MEDS: Pantoprazole Sodium 20 MG DR Tablet PO SCH (10:10)
[2018-09-02] MEDS: guaiFENesin 600 MG ER Tablet PO SCH ×2 (10:10→20:51)
[2018-09-02] MEDS: Senna/Docusate Sodium 8.6/50 MG Tablet PO SCH ×2 (10:10→20:51)
[2018-09-02] MEDS: MethylPREDNISolone Sod Succinate Inj 40 MG/ML Vial IV.PUSH SCH ×2 (10:11→20:58)
[2018-09-02] MEDS: Duloxetine 60 MG DR Capsule PO SCH ×2 (10:11→20:51)
[2018-09-02] MEDS: Budesonide-Formoterol 80/4.5 MCG 6.9 GM Inhaler INH SCH ×2 (10:13→20:52)
--- NOTE | 2018-09-02 14:24 | P.PNIM ---
Subjective Interval history: feeling better today, had only one wheezing episode this morning. cough improving. Physical Exam Vital signs: Last Vital Signs Temp 97.5 F L 09/02/18 12:00 Pulse 80 09/02/18 12:37 Resp 16 09/02/18 12:50 BP 119/58 L 09/02/18 12:00 Pulse Ox 92 L 09/02/18 12:00 Intake & Output 08/31/18 09/01/18 09/02/18 09/03/18 06:59 06:59 06:59 06:59 Intake Total 630 / 630 2937.5 / 2937.5 2335.0 / 2335.0 Output Total 900 / 900 675 / 675 660 / 660 Balance -270 / -270 2262.5 / 2262.5 1675.0 / 1675.0 Weight 98.2 kg 98.3 kg 99.8 kg Narrative: GENERAL: Well-nourished well-developed white male no acute distress SKIN: Warm and dry. HEENT:not pale,anicteric, nasal canula in situ. NECK:no JVD CARDIOVASCULAR: Regular rate and rhythm.s1s2 normal. no murmurs. RESPIRATORY:clear to auscultation bilaterally, no wheezes or rales. GASTROINTESTINAL: Abdomen soft, non-tender, nondistended. Hepatic and splenic margins not palpable. MUSCULOSKELETAL: Extremities without clubbing, cyanosis, or edema. No obvious deformities. NEUROLOGICAL: Awake and alert to person place time and situation. No obvious cranial nerve deficits. Motor grossly within normal limits. Five out of 5 muscle strength in the arms and legs. Normal speech. PSYCHIATRIC: Appropriate mood and affect; insight and judgment normal. Results Labs CBC & Chem 7: 08/31/18 06:18 09/01/18 04:52 Labs: Microbiology 08/31/18 10:33 Sputum - Expectorated Sputum Gram Stain - Final 08/31/18 10:33 Sputum - Expectorated Sputum Sputum Culture - Final Heavy growth normal respiratory alexa 08/30/18 20:04 Blood - Peripheral Aerobic Blood Culture - Preliminary No growth in 3 days 08/30/18 20:04 Blood - Peripheral Anaerobic Blood Culture - Preliminary No growth in 3 days 08/30/18 19:59 Blood - Peripheral Aerobic Blood Culture - Preliminary No growth in 3 days 08/30/18 19:59 Blood - Peripheral Anaerobic Blood Culture - Preliminary No growth in 3 days Assessment and Plan Plan 53-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 coli with failed outpatient treatment Acute problems: 1. Community acquired pneumonia: sputum culture done in outpt setting grew MRSA and E. coli pneumonia. Sputum culture here has been sent, gram stain- g+ cocci, g+rods. AFB PCR negative. blood culture with no growth to date. continue IV vancomycin , switched to IV Ceftriaxone since E.coli culture was resistant to Levaquin. cont mucinex. appreciate pulmonary and ID consult recs. 2. Asthma/COPD acute exacerbation likely due to the infection.Continue with steroids with DuoNeb treatments, prn Oxygen supplementation. Stable chronic conditions: #History of hyperlipidemiacont statin #Hypertension historycont HCTZ #History of chronic neck and back pain on chronic narcoticscont home narcotics with bowel regimen to prevent constipation. DVT prophylaxisLovenox Progress Note: Quality VTE Deep Vein Thrombosis/Pulmonary Embolism Present on Admission: No
[2018-09-02] MEDS: Enoxaparin Inj 40 MG/0.4 ML Syringe SQ SCH (16:51)
[2018-09-02] MEDS: Melatonin 5 MG Tablet PO PRN (20:50)
[2018-09-03] MEDS: Vancomycin Inj 1,750 MG in Sodium Chlor 0.9% Inj 500 ML IV.SIG SCH (01:04)
[2018-09-03] MEDS: oxyCODONE HCL 40 MG Controlled Release Tablet PO SCH (04:13)
[2018-09-03 07:49] LABS: Glomerular Filtration Rate Greater Than 89 mL/min (>89)
--- NOTE | 2018-09-03 08:18 | P.DS ---
DS: Providers Date of admission: 08/30/18 15:38 Primary care physician: Mohamud Martinez MD Consults: 08/30/18 15:00 Consult to Infectious Diseases Routine Consulting Provider: Marycarmen Rosas Reason for Consultation: Hx of MRSA and ECOLI Pneumonia with COPD Notified:: Service Spoke with:: NICO Date Notified:: 08/30/18 Time Notified:: 15:24 Comments:: E57 Ordering Provider: JAVIER Consult to Pulmonology Routine Consulting Provider: Tyler Collins Preferred Injection Molding Machine Offbearer:: Tyler Collins Patient known to:: Tyler Collins Reason for Consultation: COPD. MRSA pneumonia Notified:: Office Spoke with:: MARIMAR Date Notified:: 08/30/18 Time Notified:: 15:22 Comments:: E57 Ordering Provider: JAVIER 08/31/18 15:08 HUB Only Consult Order Routine Consulting Provider: Caitie Blood Brief History from admission: 53-year-old white male with a history of COPD with asthma, chronic neck and back pain on chronic narcotics, hypertension, hyperlipidemia was instructed to come to the emergency room by his song lyricist due to recent sputum cultures for MRSA E. coli with community- acquired pneumonia. Apparently, patient has been struggling with increasing shortness of breath during the past 2 months worse with physical exertion associated with a productive cough with white sputum. He was smoking 1 pack of sugars per day has now cut down to 8 cigarettes daily. He has not had any chills and fever nor any recent weight loss. He recently had an outpatient CT of the chest through the [place] and per song lyricist, Dr. Collins and had noted bilateral consolidation with pneumonia. He denies any associated chest pain with the symptoms. He reports he is currently taking chronic narcotics for chronic neck and back pain and usually ambulates with assistance of cane. DS: Summary ISSUES ADDRESSED DURING THIS HOSPITALIZATION: 1. Community acquired pneumonia and COPD exacerbation: sputum culture done in outpt setting grew MRSA and E. coli pneumonia. He desaturated while on the medical floor on admission requiring oxygen by nasal canula Gram stain- g+ cocci, g+rods.Sputum culture remained negative.AFB PCR negative.blood culture with no growth to date. Patient was treated IV vancomycin and IV Ceftriaxone based on sensitivities from outpatient culture report. He was started on DuoNeb treatments, prn Oxygen supplementation, and Methyl Prednisone and Mucinex. His condition improved significantly and Oxygen was successfully tapered off. He was transitioned to oral Augmentin and Doxycycline based on sensitivities to complete another 7 days of treatment on discharge. He was also given a Prescription for Prednisone for 3 more days after discharge. Patient should follow up with his Primary care doctor within 1 week for re- evaluation and his Dealer Development Manager as scheduled. Time Spent with Patient Total time spent providing and/or coordinating discharge services:>30minutes Quality: VTE Deep Vein Thrombosis/Pulmonary Embolism Present on Admission: No Results Labs on day of discharge: Labs from last 24 hours 09/03/18 06:30 Creatinine 0.78 Estimated GFR Greater than 89 Preliminary micro results at discharge 08/30/18 20:04 Aerobic Blood Culture - Preliminary Blood - Peripheral No growth in 3 days Anaerobic Blood Culture - Preliminary No growth in 3 days 08/30/18 19:59 Aerobic Blood Culture - Preliminary Blood - Peripheral No growth in 3 days Anaerobic Blood Culture - Preliminary No growth in 3 days Impressions ITS Impressions Chest CT 08/30/18 00:00 CONCLUSION: 1. Tree-in-bud infiltrates of both lungs, mostly right upper lobe and left lower lobe. These findings are typically seen in the setting of an inflammatory or atypical infectious process of the distal airways. 2. Coronary artery calcification. Chest X-Ray 08/30/18 14:39 CONCLUSION: Underinflation with mild opacity at the left lung base which could represent either subsegmental atelectasis or mild consolidation. Discharge Plan Discharge Disposition Patient Disposition: 01 Discharge Home Discharge Order Discharge Orders: Discharge Order (Routine); Ordered 09/03/18 Ordered By: Idalia Palencia Pulmonology Clear for Discharge (Routine); Ordered 09/03/18 Ordered By: Idalia Palencia Discharge Details Anticipated Discharge Date: 09/03/18 Discharge Comment: if cleared by pulmonary Physicians Team Primary Care Provider: Mohamud Martinez Attending Provider: Idalia Palencia Other Providers: Marycarmen Rosas ; Tyler Collins ; Caitie,Caitie Rxs /Orders / Referrals /Forms Prescriptions: New prednisone 20 mg tablet 40 mg PO DAILY 3 Days Qty: 6 RF: 0 amoxicillin-pot clavulanate [Augmentin] 875-125 mg tablet 1 tab PO Q12H Qty: 14 RF: 0 doxycycline hyclate 100 mg tablet 100 mg PO BID 14 Days Qty: 28 RF: 0 Continue oxycodone 15 mg Tablet 15 mg PO Q6H PRN (Reason: Pain) RF: 0 oxycodone [OxyContin] 40 mg Tablet,Oral Only,Ext.Rel.12 Hr 40 mg PO TID RF: 0 albuterol sulfate 0.63 mg/3 mL Solution For Nebulization 0.63 mg INHALATION Q4H PRN (Reason: Shortness Of Breath) RF: 0 atorvastatin 40 mg Tablet 40 mg PO HS RF: 0 amitriptyline 50 mg Tablet 50 mg PO HS RF: 0 hydrochlorothiazide 12.5 mg Capsule 12.5 mg PO DAILY RF: 0 omeprazole 20 mg Capsule,Delayed Release(Dr/Ec) 20 mg PO DAILY RF: 0 budesonide-formoterol [Symbicort] 80-4.5 mcg/actuation Hfa Aerosol Inhaler 2 puff INHALATION BID RF: 0 ProAir HFA RF: 0 duloxetine 60 mg Capsule,Delayed Release(Dr/Ec) 120 mg PO DAILY RF: 0 albuterol sulfate [ProAir HFA] 90 mcg/actuation Hfa Aerosol Inhaler 1 puff INHALATION Q2HR PRN (Reason: Dyspnea) RF: 0 Referrals: Mohamud Martinez MD [Primary Care Provider] - See Instructions Discharge Instructions Patient Printed Instructions: Doxycycline (By mouth), Prednisone (By mouth), Amoxicillin/Clavulanate Potassium (By mouth) Additional Instructions: Your pulmonary doctor referred you to the hospital for treatment of pneumonia. You were started on appropriate IV antibiotics and your condition gradually improved. You have been transitioned to antibiotic pills the entire doses of which you should complete as prescribed. Continue taking your other medication as prescribed. Follow up with your doctor within 1 week for re-evaluation. Post Discharge Care Plan Care Plan Goals: Discharge Care Plan Goals for Pneumonia You have been diagnosed with pneumonia. This is a serious lung infection. Most cases of pneumonia are caused by bacteria. Pneumonia most often occurs in older adults, young children, and people with chronic health problems. Directions to Meet your Goals: 1. Home care: * Take your medicine exactly as directed. Dont skip doses. Continue taking your antibiotics as until they are all gone, even if you start to feel better. This will prevent the pneumonia from coming back. * Drink at least 8 glasses of water daily, unless directed otherwise. This helps to loosen and thin secretions so that you can cough them up. * Use a cool-mist humidifier in your bedroom. Be sure to clean the humidifier daily. * Dont use medicines to suppress your cough unless your cough is dry, painful, or interferes with your sleep. Coughing up mucus is normal. You may use an expectorant if your doctor says its okay. * You can use warm compresses or a heating pad on the lowest setting to relieve chest discomfort. Use several times a day for 15-20 minutes at a time. To prevent injury to your skin, set the temperature to warm, not hot. Dont put the compress or pad directly on your skin. Make certain it has a cover or wrap it in a towel. This is to prevent skin nielsen. * Get plenty of rest until your fever, shortness of breath, and chest pain go away. * Plan to get a flu shot every year. The flu is a common cause of pneumonia. Getting a flu shot every year can help prevent both the flu and pneumonia. 2. Getting the pneumococcal vaccine: * Talk with your doctor about getting the pneumococcal vaccine. Pneumococcal pneumonia is caused by bacteria that spread from person to person. It can cause minor problems, such as ear infections. But it can also turn into life- threatening illnesses of the lungs (pneumonia), the covering of the brain and spinal cord (meningitis), and the blood (bacteremia). * Make sure to ask your doctor if you should have the vaccine. Children under 2 years of age, adults over age 65, people with certain health conditions, and smokers are at the highest risk of pneumococcal disease. This vaccine can help prevent pneumococcal disease in both adults and children. 3. Follow-up care: Do Not miss your follow-up appointment. Keep up with all your appointments and yearly check ups 4. When to call your doctor: Call your doctor immediately if you have any of the following: Fever of 100.4F (38C) or higher, or as directed by your healthcare provider Mucus from the lungs (sputum) thats yellow, green, bloody, or smells bad Vomiting Any symptoms that get worse 5. Call 911: Call 911 right away if you have any of the following: Chest pain Trouble breathing Blue lips or fingernails Discharge Interventions Interventions: Discharge Planning - Case Management Last Done: 08/31/18 08:37 Status ED Status: Left Department
[2018-09-03] MEDS: guaiFENesin 600 MG ER Tablet PO SCH (08:50)
[2018-09-03] MEDS: Pantoprazole Sodium 20 MG DR Tablet PO SCH (08:50)
[2018-09-03] MEDS: Duloxetine 60 MG DR Capsule PO SCH (08:50)
[2018-09-03] MEDS: Senna/Docusate Sodium 8.6/50 MG Tablet PO SCH (08:50)
[2018-09-03] MEDS: MethylPREDNISolone Sod Succinate Inj 40 MG/ML Vial IV.PUSH SCH (08:51)
[2018-09-03] MEDS: Budesonide-Formoterol 80/4.5 MCG 6.9 GM Inhaler INH SCH (08:52)
== END 2018-09-03 09:58 | disposition home or self-care (01) ==
LOC: NEPE 11:48 → NEDA 15:38 → N04 18:19
PROVIDERS: ADMIT Hospitalist; ATTEND Hospitalist
DX: Z96.653 Presence of artificial knee joint, bilateral; I10 Essential (primary) hypertension; M54.2 Cervicalgia; Z16.23 Resistance to quinolones and fluoroquinolones; R63.4 Abnormal weight loss; F17.210 Nicotine dependence, cigarettes, uncomplicated; Z79.891 Long term (current) use of opiate analgesic; J15.212 Pneumonia due to Methicillin resistant Staphylococcus aureus; J45.901 Unspecified asthma with (acute) exacerbation; G89.29 Other chronic pain; G62.9 Polyneuropathy, unspecified; J44.1 Chronic obstructive pulmonary disease with (acute) exacerbation; Z79.51 Long term (current) use of inhaled steroids; J15.5 Pneumonia due to Escherichia coli; J44.0 Chronic obstructive pulmonary disease with (acute) lower respiratory infection; E78.5 Hyperlipidemia, unspecified; Z82.5 Family history of asthma and other chronic lower respiratory diseases